=== PATIENT | male | born 1935 | race Caucasian/White ===

== ENCOUNTER 2021-06-18 09:54 | Inpatient (IN) | payer MEDICARE, BC ==
[2021-06-18] MEDS ORDERED: Albuterol/Ipratropium 3.0-0.5 MG/3 ML Neb Soln NEB ONE (10:14)
--- NOTE | 2021-06-18 10:57 | EDM.PDOC ---
ED HPI GENERAL MEDICAL PROBLEM - General Chief Complaint: Respiratory Problem Stated Complaint: oxygen level Time Seen by Provider: 06/18/21 09:58 Source of Information: Reports: Patient, Significant Other History Limitations: Reports: No Limitations - History of Present Illness INITIAL COMMENTS - FREE TEXT/NARRATIVE: Patient presents with dyspnea. He was at the [facility] for a routine appointment with his oncologist. His O2 sats were in the 50's so they sent him to ER. He uses 3-3.5 liters of oxygen at home but lower on his portable in the car. He was without oxygen walking in to the clinic. He has known COPD, emphysema, and small cell lung cancer. He is doing chemotherapy. He always has a cough and doesn't think it is much worse than usual but has a loose, rattly sound with breathing that has been worse the last few days. He does Duonebs at home bid but didn't have one this morning yet. Treatments SLIPMAN: Reports: IV/IO, Oxygen - Related Data Allergies Allergy/AdvReac Type Severity Reaction Status Date / Time oxycodone [Oxycodone] Allergy Hives Verified 06/18/21 10:11 tramadol Allergy Cannot Verified 06/18/21 10:11 Remember Home Meds: Home Meds Acetaminophen [Acetaminophen 8 Hour] 650 mg PO BID PRN 10/25/20 [History] Albuterol [Proventil Neb Soln] 2.5 mg INH Q4H PRN 10/25/20 [History] Albuterol/Ipratropium [DuoNeb 3.0-0.5 MG/3 ML] 1 ampule INH Q6H PRN 10/25/20 [History] Aspirin 81 mg PO BEDTIME 10/25/20 [History] Budesonide [Pulmicort] 0.5 mg IH BID PRN 10/25/20 [History] Cholecalciferol (Vitamin D3) [Vitamin D3] 2,000 units PO DAILY 10/25/20 [History] Docusate Sodium [Colace] 200 mg PO BEDTIME 10/25/20 [History] Formoterol [Perforomist] 20 mcg INH BID 10/25/20 [History] Magnesium Chloride [Magnesium] 64 mg PO BEDTIME 10/25/20 [History] Montelukast [Singulair] 10 mg PO BEDTIME 10/25/20 [History] atorvaSTATin [Lipitor] 20 mg PO QAM 10/25/20 [History] lisinopriL [Prinivil] 2.5 mg PO QPM 10/25/20 [History] predniSONE [Prednisone] 5 mg PO DAILY 10/25/20 [History] Apixaban [Eliquis] 5 mg PO BID 01/16/21 [History] Atezolizumab [Tecentriq] 1,200 mg IV ASDIRECTED 02/06/21 [History] Omeprazole 20 mg PO DAILY 06/18/21 [History] Past Medical History HEENT History: Reports: Impaired Vision Cardiovascular History: Reports: CAD, Heart Failure, [place] Respiratory History: Reports: COPD, Pneumothorax, SOB Genitourinary History: Reports: Renal Calculus Musculoskeletal History: Reports: Other (See Below) Other Musculoskeletal History: CHRONIC RIGHT HIP PAIN Endocrine/Metabolic History: Reports: Osteoporosis Hematologic History: Reports: Anemia Oncologic (Cancer) History: 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 SQUAMOUS RIGHT EAR - Past Surgical History HEENT Surgical History: Reports: None Cardiovascular Surgical History: Reports: Other (See Below) Other Cardiovascular Surgeries/Procedures: CARDIAC CATHETERIZATION FAILED ATTEMPT AT RCA Other Respiratory Surgeries/Procedures: right upper [id number] GI Surgical History: Reports: Colonoscopy Male Surgical History: Reports: Other (See Below) Other Male Surgeries/Procedures: BREAST BIOPSY LEFT - BENIGN. BIOPSY VOCAL CORDS - CYST REMOVED Musculoskeletal Surgical History: Reports: Other (See Below) Other Musculoskeletal Surgeries/Procedures:: T7 COMPRESSION FRACTURE Social & Family History - Caffeine Use Caffeine Use: Reports: Coffee ED ROS GENERAL - Review of Systems Review Of Systems: See Below Constitutional: Denies: Fever, Weakness HEENT: Denies: Ear Pain, Throat Pain, Vision Change Respiratory: Reports: Shortness of Breath Cardiovascular: Denies: Chest Pain, Lightheadedness, Syncope GI/Abdominal: Reports: Constipation (chronic). Denies: Abdominal Pain, Diarrhea, Nausea, Vomiting : Denies: Dysuria Musculoskeletal: Denies: Neck Pain Skin: Reports: Cyanosis (he was at clinic today). Denies: Jaundice, Mottled, Pallor Neurological: Denies: Confusion, Dizziness, Headache, Seizure, Syncope, Trouble Speaking, Difficulty Walking Psychiatric: Denies: Agitation, Anxiety, Confusion Hematologic/Lymphatic: Denies: Anemia (his chemo hasn't caused any anemias so far) ED EXAM, GENERAL - Physical Exam Exam: See Below Exam Limited By: No Limitations General Appearance: Alert, No Apparent Distress (currently on oxygen he is not ), Thin Eye Exam: Bilateral Eye: EOMI, Normal Inspection, PERRL Ears: Normal External Exam, Hearing Grossly Normal Nose: Normal Inspection, No Blood Throat/Mouth: Normal Inspection, Normal Lips, Normal Voice, No Airway Compromise Head: Atraumatic, Normocephalic Neck: Normal Inspection, Full Range of Motion Respiratory/Chest: Crackles (mild crackles in both lungs but largely overshadowe d by the coarse rhonchi in the upper airway), Rhonchi, Wheezing (mild, transient). No: Stridor Cardiovascular: Regular Rate, Rhythm, No Murmur GI/Abdominal: Normal Bowel Sounds, Soft, Non-Tender, No Distention Back Exam: Normal Inspection, Full Range of Motion. No: CVA Tenderness (L), CVA Tenderness (R) Extremities: Normal Inspection, Normal Range of Motion Neurological: Alert, Oriented, Normal Cognition, No Motor/Sensory Deficits Psychiatric: Normal Affect, Normal Mood Skin Exam: Warm, Dry, Intact, Normal Color (currently), No Rash Course - Vital Signs Last Recorded V/S: Last Vital Signs Temp 97.1 F 06/18/21 09:54 Pulse 94 06/18/21 10:48 Resp 22 H 06/18/21 10:00 BP 130/77 06/18/21 10:00 Pulse Ox 95 06/18/21 10:48 - Orders/Labs/Meds Orders: Active Orders 24 hr Category Date Time Status RT Aerosol Therapy [RC] ASDIRECTED Care 06/18/21 10:16 Ordered CULTURE BLOOD [BC] Stat Lab 06/18/21 11:57 Ordered CULTURE BLOOD [BC] Stat Lab 06/18/21 11:57 Ordered Blood Culture x2 Reflex Set [OM.PC] Stat Oth 06/18/21 11:57 Ordered Labs: Laboratory Tests 06/18/21 06/18/21 06/18/21 Range/Units 10:14 10:40 10:40 WBC 13.29 H (5.00-10.00) 10^3/uL RBC 3.92 L (4.50-6.00) 10^6/uL Hgb 12.0 L (13.0-17.0) g/dL Hct 36.0 L (40.0-52.0) % MCV 91.8 (82.0-92.0) fL MCH 30.6 (27.0-31.0) pg MCHC 33.3 (32.0-36.0) g/dL RDW 14.0 (11.5-14.5) % Plt Count 186 (150-400) 10^3/uL MPV 9.6 (7.4-10.4) fL Immature Gran % (Auto) 3.7 (0.0-5.0) % Neut % (Auto) 86.5 H (50.0-70.0) % Lymph % (Auto) 2.8 L (20.0-40.0) % [place] % (Auto) 6.8 (2.0-8.0) % Eos % (Auto) 0.1 L (1.0-3.0) % Baso % (Auto) 0.1 (0.0-1.0) % Neut # (Auto) 11.51 H (2.50-7.00) 10^3/uL Lymph # (Auto) 0.37 L (1.00-4.00) 10^3/uL [place] # (Auto) 0.90 H (0.10-0.80) 10^3/uL Eos # (Auto) 0.01 L (0.10-0.30) 10^3/uL Baso # (Auto) 0.01 (0.00-0.10) 10^3/uL Immature Gran # (Auto) 0.49 (0.00-0.50) 10^3/uL Sodium 138 (136-145) mmol/L Potassium 4.1 (3.5-5.1) mmol/L Chloride 98 (98-107) mmol/L Carbon Dioxide 31.9 (21.0-32.0) mmol/L Anion Gap 12.2 (5-15) mmol/L BUN 43 H (7-18) mg/dL Creatinine 0.96 (0.51-1.17) mg/dL Est Cr Clr Drug Dosing 56.11 mL/min Estimated GFR (MDRD) > 60 mL/min Glucose 124 (70-140) mg/dL Lactic Acid 1.9 (0.4-2.0) mmol/L Calcium 9.2 (8.7-10.3) mg/dL Total Bilirubin 0.5 (0.2-1.0) mg/dL AST 72 H (15-37) U/L ALT 29 (14-63) U/L Alkaline Phosphatase 63 (46-116) U/L B-Natriuretic Peptide 291 H (0-100) pg/mL Total Protein 6.6 (6.4-8.2) g/dL Albumin 3.01 L (3.40-5.00) g/dL SARS CoV-2 RNA Rapid KISHAN (NEGATIVE) 06/18/21 Range/Units 12:10 WBC (5.00-10.00) 10^3/uL RBC (4.50-6.00) 10^6/uL Hgb (13.0-17.0) g/dL Hct (40.0-52.0) % MCV (82.0-92.0) fL MCH (27.0-31.0) pg MCHC (32.0-36.0) g/dL RDW (11.5-14.5) % Plt Count (150-400) 10^3/uL MPV (7.4-10.4) fL Immature Gran % (Auto) (0.0-5.0) % Neut % (Auto) (50.0-70.0) % Lymph % (Auto) (20.0-40.0) % [place] % (Auto) (2.0-8.0) % Eos % (Auto) (1.0-3.0) % Baso % (Auto) (0.0-1.0) % Neut # (Auto) (2.50-7.00) 10^3/uL Lymph # (Auto) (1.00-4.00) 10^3/uL [place] # (Auto) (0.10-0.80) 10^3/uL Eos # (Auto) (0.10-0.30) 10^3/uL Baso # (Auto) (0.00-0.10) 10^3/uL Immature Gran # (Auto) (0.00-0.50) 10^3/uL Sodium (136-145) mmol/L Potassium (3.5-5.1) mmol/L Chloride (98-107) mmol/L Carbon Dioxide (21.0-32.0) mmol/L Anion Gap (5-15) mmol/L BUN (7-18) mg/dL Creatinine (0.51-1.17) mg/dL Est Cr Clr Drug Dosing mL/min Estimated GFR (MDRD) mL/min Glucose (70-140) mg/dL Lactic Acid (0.4-2.0) mmol/L Calcium (8.7-10.3) mg/dL Total Bilirubin (0.2-1.0) mg/dL AST (15-37) U/L ALT (14-63) U/L Alkaline Phosphatase (46-116) U/L B-Natriuretic Peptide (0-100) pg/mL Total Protein (6.4-8.2) g/dL Albumin (3.40-5.00) g/dL SARS CoV-2 RNA Rapid KISHAN Negative (NEGATIVE) Meds: Medications Discontinued Medications Generic Name Dose Route Start Last Admin Trade Name Freq PRN Reason Stop Dose Admin Albuterol/Ipratropium 3 ml 06/18/21 10:14 06/18/21 10:48 Albuterol/Ipratropium 3.0-0.5 Mg/3 Ml Neb Soln NEB 06/18/21 10:15 3 ml ONETIME ONE Administration Ceftriaxone Sodium 2 gm 06/18/21 12:11 06/18/21 12:43 Ceftriaxone 2 Gm Vial IVPUSH 06/18/21 12:12 2 gm ONETIME ONE Administration - Re-Assessments/Exams Free Text/Narrative Re-Assessment/Exam: 06/18/21 12:12 WBC and ANC elevated. CXR consistent with pneumonia. Getting blood cultures and Covid tests now. Rocephin to follow. I called and left voicemail for Dr. Lobo about this admission. I discussed findings and treatment plan with patient and he is okay with staying in the hospital. 06/18/21 12:[address] Lobo and he accepted for inpatient treatment. Patient stable. Covid test negative. Blood cultures drawn and Rocephin being started now. Departure - Departure Time of Disposition: 12:55 Disposition: Admitted As Inpatient 68 Condition: Good Clinical Impression: Hypoxemia requiring supplemental oxygen, Small cell lung carcinoma CAP (community acquired pneumonia) Qualifiers: Laterality: left Lung location: unspecified part of lung Qualified Code(s): J18.9 - Pneumonia, unspecified organism COPD (chronic obstructive pulmonary disease) Qualifiers: COPD type: unspecified COPD Qualified Code(s): J44.9 - Chronic obstructive pulmonary disease, unspecified Emphysema lung Qualifiers: Emphysema type: unspecified Qualified Code(s): J43.9 - Emphysema, unspecified - Discharge Information Referrals: Mana Cruz MD [Primary Care Provider] - Forms: ED Department Discharge Sepsis Event Note (ED) - Evaluation Sepsis Screening Result: No Definite Risk - Focused Exam Vital Signs: Vital Signs Temp Pulse Resp BP Pulse Ox Pulse Ox 06/18/21 10:48 94 95 06/18/21 10:00 102 H 22 H 130/77 95 06/18/21 09:54 97.1 F 100 20 132/74 99 - My Orders Last 24 Hours: My Active Orders 06/18/21 10:16 RT Aerosol Therapy [RC] ASDIRECTED 06/18/21 11:57 CULTURE BLOOD [BC] Stat CULTURE BLOOD [BC] Stat Blood Culture x2 Reflex Set [OM.PC] Stat - Assessment/Plan Last 24 Hours: My Active Orders 06/18/21 10:16 RT Aerosol Therapy [RC] ASDIRECTED 06/18/21 11:57 CULTURE BLOOD [BC] Stat CULTURE BLOOD [BC] Stat Blood Culture x2 Reflex Set [OM.PC] Stat
[2021-06-18 11:04] LABS: ANION GAP 12.2 mmol/L (5-15); CHLORIDE,CL 98 mmol/L (98-107); SODIUM,NA 138 mmol/L (136-145)
--- NOTE | 2021-06-18 11:26 | CR ---
[id number] RAD/RAD Chest PA or AP 1V EXAM: RAD Chest PA or AP 1V INDICATION: HYPOXEMIA,COUGH. COMPARISON: August 2016. DISCUSSION/IMPRESSION: Parenchymal opacification extending peripherally from the left hilum. Imaging appearance is nonspecific. If there are clinical signs of infection this would be consistent with pneumonia. However, there is also increased right hilar prominence is prior examination 2015. CT examination the chest with contrast is recommended to exclude underlying adenopathy. If there is contraindication to intravenous contrast, noncontrast examination would also be of benefit. Martin Chin MD 06/18/21 1125 Thank you for allowing us to participate in the care of your patient.
[2021-06-18] MEDS ORDERED: cefTRIAXone 2 GM Vial IVPUSH ONE (12:11)
[2021-06-18] MEDS ORDERED: Acetaminophen 650 MG Tab.ER PO PRN (15:51)
[2021-06-18] MEDS ORDERED: ATEZOLIZUMAB IV SCH (16:00)
[2021-06-18] MEDS: Albuterol/Ipratropium 3.0-0.5 MG/3 ML Neb Soln INH PRN (18:08)
[2021-06-18] MEDS ORDERED: Sodium Chloride 0.9% 100 ML IV SCH (18:15)
[2021-06-18] MEDS: Levofloxacin/Dextrose 5%-Water 500 MG in Premix Bag 1 BAG IV SCH (18:25)
--- NOTE | 2021-06-18 20:38 | HP ---
PATIENT PROFILE: The patient is an 85-year-old patient. He was initially seen because of dyspnea. He was seen earlier at the [facility] for a routine appointment with his oncologist, Dr. Jorgensen. His oxygen saturations were in the 50s, so they sent him to the emergency room. He uses 3 to 3.5 L of oxygen at home, but lower on his portable when he is in the car. He was without oxygen walking into the clinic. He has known COPD, emphysema, and small cell lung carcinoma. He is doing chemotherapy at this time. He also always has a slight cough. It was not much worse than normal. He has a loose rattly sound with breathing and that was worse from the last couple of days. He does DuoNeb at home, but did not have one this morning. 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 CARDIOVASCULAR HISTORY: Includes reports of coronary artery disease, heart failure, previous ME. RESPIRATORY SYSTEM: Includes COPD. Pneumothorax. He has shortness of breath. GENITOURINARY SYSTEM: Reports renal calculi. MUSCULOSKELETAL SYSTEM: Nil, otherwise he has chronic right hip pain. ENDOCRINE HISTORY: History of osteoporosis. HEMATOLOGIC HISTORY: History of anemia. ONCOLOGICAL HISTORY: The patient does have small cell carcinoma of the left lung. 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 PAST SURGICAL HISTORY: Includes biopsy of the vocal cord, excision of cyst of the skin, thoracotomy, endobronchial ultrasound, breast biopsy, hernia repair, colonoscopy, and cardiac catheterization. MEDICATIONS: Currently include acetaminophen 650 mg b.i.d. on a p.r.n. basis, albuterol nebulizer treatments on a p.r.n. basis q.4h., albuterol ipratropium nebulizer 3.0/0.5 mg per 3 mL 1 ampule q.6h. p.r.n., aspirin 81 mg at bedtime, budesonide (Pulmicort) 0.5 mg INH b.i.d. p.r.n., cholecalciferol, vitamin D3 at 2000 units daily, docusate sodium one 200 mg at bedtime, formoterol which is Perforomist 20 mcg inhalation b.i.d., magnesium chloride 6.4 mg at bedtime, montelukast 10 mg at bedtime, atorvastatin 20 mg daily, lisinopril 2.5 mg daily in the p.m., prednisone 5 mg daily, Eliquis 5 mg b.i.d., Tecentriq 1200 mg IV as directed, omeprazole 20 mg daily. ALLERGIES: Oxycodone and tramadol. SOCIAL/PERSONAL HISTORY: The patient has used tobacco. Drugs, no. Alcohol, no. FAMILY HISTORY: One brother is alive. Father is diseased. Mother is diseased. One sister and one of the two brothers are alive. REVIEW OF SYSTEMS: HEAD AND NECK: He complains of fever, weakness, and respiratory distress. HEENT: Negative. RESPIRATORY: Complains of coughing, shortness of breath and wheezing. CARDIOVASCULAR: Denies any chest pain, lightheadedness, or syncope. ABDOMEN: Complains of constipation. Denies any active abdominal pain, diarrhea, nausea, vomiting at this time. : Denies dysuria. MUSCULOSKELETAL: Denies neck pain. SKIN: Reports cyanosis. NEUROLOGICAL: No history of confusion, dizziness, headaches, seizures, trouble speaking, difficulty walking, etc. PSYCHIATRIC: Denies agitation or confusion. HEMATOLOGICAL: Has history of anemia. PHYSICAL EXAMINATION: GENERAL: Reveals an elderly gentleman in a moderate amount of distress. EYES: Arcus senilis. EARS, NOSE, AND THROAT: Normal. NECK: Supple. Full range of motion. No midline swellings. The lymph nodes are not enlarged. RESPIRATORY: The patient has crackles present throughout the lung cummings, especially in the left side. He has a loose cough present. Also some rhonchi present. No stridor. CARDIOVASCULAR: Regular rhythm. No thrills. No murmurs. ABDOMEN: Normal bowel sounds. Soft, nontender. No masses. BACK: No CVA tenderness. Full range of motion. EXTREMITIES: Normal range of motion. NEUROLOGICAL: Alert and oriented to space, time, and person. PSYCHIATRIC: Normal mood and normal affect. SKIN: Normal. No rash. VITAL SIGNS: Temperature is 97.1, pulse is 94, respirations 22, blood pressure 130/77, pulse oxygenation 95%. DIAGNOSTIC: Chest x-ray shows infiltrate of the left hilar consistent with pneumonia. The patient has elevated WBC and ANC. Rocephin was given. The patient was admitted to the hospital for admission. Blood cultures are drawn. Levofloxacin 500 mg also started. LABORATORY DATA: Hemoglobin is 12.0, white count 13.29, hematocrit is 36, neutrophils are 86.5%, lymphocytes 2.8%, normal 20. Electrolytes are normal. Lactic acid 1.9, normal up to 2. AST slightly high at 72, normal 37. Beta natriuretic peptide is 291, normal 100. Albumin low at 3.01, normal 3.4. IMPRESSION/PLAN: 1. Left upper lobe pneumonia. 2. History of small cell carcinoma of the lungs. 3. Coronary artery disease, stable. 4. Tobacco dependency, stable. 5. Chronic systolic congestive heart failure, stable. 6. Previous history of myocardial infarction and coronary artery disease. 7. History of emphysema of lungs. 8. History of renal calculi. 9. History of hypermagnesemia. 10.Previous history of compression fracture of T7. 11.Osteoporosis. 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 13.Status post right inguinal herniorrhaphy, status post cardiac catheterization, status post thoracotomy, status post cephalic vein thrombosis requiring anticoagulation therapy. 14.Constipation. The plan will be to start him on Rocephin and levofloxacin for his pneumonia. Continue pulmonary treatments with albuterol and ipratropium, continue apixaban for his cephalic vein thrombosis, continue atorvastatin, budesonide, hydrocodone for pain relief. Follow up in a.m. PROGNOSIS: Grave. /[id number]/MODL
[2021-06-18] MEDS: Aspirin 81 MG Tab.Chew PO SCH (20:44)
[2021-06-18] MEDS: Apixaban 5 MG Tab PO SCH (20:44)
[2021-06-18] MEDS: Magnesium Chloride 64 MG Tab.ER PO SCH (20:44)
[2021-06-18] MEDS: Docusate Sodium 100 MG Cap PO SCH (20:44)
[2021-06-18] MEDS: Montelukast 10 MG Tab PO SCH (20:44)
[2021-06-18] MEDS: Lisinopril 5 MG Tab PO SCH (20:53)
[2021-06-18] MEDS: Albuterol 0.083% 2.5 MG/3 ML Neb Soln INH PRN (22:15)
[2021-06-19] MEDS: Albuterol/Ipratropium 3.0-0.5 MG/3 ML Neb Soln INH PRN ×3 (01:35→18:35)
[2021-06-19] MEDS ORDERED: Hydrocortisone Sodium Succinate 100 MG/2 ML SDV IVPUSH ONE (02:19)
[2021-06-19] MEDS ORDERED: Magnesium Sulfate/Water 2 GM in Premix Bag 1 BAG IV ONE (02:20)
[2021-06-19] MEDS: guaiFENesin 600 MG Tab.ER PO SCH ×3 (03:29→20:09)
[2021-06-19 04:33] LABS: BASE EXCESS ARTERIAL 4 mmol/L (-2-3); BICARBONATE,ARTERIAL 30.6 mmol/L (22-26); O2 DELIVERY DEVICE SIMPLE MASK; O2 SATURATION ARTERIAL 94 % (95-98); PCO2 ARTERIAL 53 mmHG (35-45); PO2 ARTERIAL 73 mmHG (80-105)
--- NOTE | 2021-06-19 04:37 | CCN ---
DATE: TIME: 3:30 a.m. HISTORY OF PRESENT ILLNESS: The patient is an 85-year-old gentleman, who was admitted to the hospital yesterday because of acute respiratory distress. The past history of this patient includes the fact that he has lung carcinoma and is undergoing treatment with chemotherapy. He also has a loose cough and slight respiratory distress at baseline. He was seen in the clinic yesterday morning and he was found to be somewhat cyanotic and having rapid breathing. Because of that, he was sent to the emergency room. He was seen in the emergency room and found to be in [id number] respiratory distress and was admitted to the hospital for further treatment. The patient always has a slight cough and slight dyspnea. At the time of his admission, his dyspnea was worse. I received a call from the nurse stating that his breathing was getting quite rapid. He had received an albuterol/ipratropium treatment, but that was not helping. His respiratory rate was getting up into the 20s. I came to see the patient at roughly 3:10 a.m. The patient seemed to be in moderate respiratory distress. He had a loose cough present. Also, some audible wheezing was noted. PHYSICAL EXAMINATION: VITAL SIGNS: As follows: Blood pressure was 125/67, respirations were actually 30, pulse was 86, pulse oxygenation was 95% on 5 L. GENERAL: He is alert. He answers questions appropriately. He states that he always has a loose cough. Does not feel too bad at this time. HEAD: Negative. EYES: Normal except for arcus senilis. NECK: Supple. LUNGS: Reveal some audible wheezing and fine crackles present throughout the lung cummings. HEART: Tachycardic rhythm. No thrills. No murmurs. ABDOMEN: Soft. No masses. EXTREMITIES: Normal. FINAL DIAGNOSES: 1. Acute on chronic respiratory distress most likely due to superadded pulmonary infection, question pneumonia, bilateral of both lungs. 2. Pre-existing lung carcinoma, on treatment. 3. History of coronary artery disease, stable. 4. History of tobacco dependency, stable. 5. History of congestive heart failure, stable. 6. Previous history of myocardial infarction, stable. 7. History of chronic obstructive pulmonary disease, stable. PLAN: To give him an additional ipratropium/albuterol treatment, IV Solu-Cortef 100 mg stat and glycopyrrolate as necessary and IV magnesium very slowly. I also made attempts to call his daughter and his , but no phones were answered. His prognosis is grave. We will also relate to Dr. Jorgensen, his primary oncologist, regarding his progress later this morning. CRITICAL CARE TIME: /[id number]/MODL
[2021-06-19] MEDS: Albuterol 0.083% 2.5 MG/3 ML Neb Soln INH PRN ×3 (05:51→23:47)
[2021-06-19 07:59] LABS: ANION GAP 12.9 mmol/L (5-15); CHLORIDE,CL 97 mmol/L (98-107); SODIUM,NA 137 mmol/L (136-145)
[2021-06-19] MEDS: Budesonide 0.5 MG/2 ML Neb Susp INH SCH ×2 (08:57→20:15)
[2021-06-19] MEDS: predniSONE 5 MG Tab PO SCH (09:14)
[2021-06-19] MEDS: Omeprazole 20 MG Cap.CR PO SCH (09:14)
[2021-06-19] MEDS: Apixaban 5 MG Tab PO SCH ×2 (09:14→20:12)
[2021-06-19] MEDS: Cholecalciferol (Vitamin D3) 25 MCG Tab PO SCH (09:15)
[2021-06-19] MEDS: atorvaSTATin 10 MG Tab PO SCH (09:15)
[2021-06-19] MEDS: Sodium Chloride 0.9% 1,000 ML IV SCH (10:38)
[2021-06-19] MEDS: Hydrocortisone Sodium Succinate 100 MG/2 ML SDV IVPUSH SCH ×2 (11:22→18:38)
--- NOTE | 2021-06-19 11:23 | PCM.PN ---
- General Info Date of Service: 06/19/21 Functional Status: Reports: Pain Controlled, Urinating - Review of Systems General: Reports: Weakness HEENT: Reports: No Symptoms Pulmonary: Reports: Shortness of Breath, Cough, Sputum. Denies: Hemoptysis Cardiovascular: Reports: Dyspnea on Exertion. Denies: Chest Pain, Palpitations, Edema Gastrointestinal: Reports: No Symptoms Genitourinary: Reports: No Symptoms Musculoskeletal: Reports: No Symptoms Skin: Reports: No Symptoms Neurological: Reports: No Symptoms Psychiatric: Reports: No Symptoms - Patient Data Vitals - Most Recent: Last Vital Signs Temp 97.6 F 06/19/21 06:16 Pulse 99 06/19/21 06:16 Resp 24 H 06/19/21 06:16 BP 145/62 H 06/19/21 06:16 Pulse Ox 90 L 06/19/21 11:12 Weight - Most Recent: 141 lb 14.4 oz I&O - Last 24 Hours: Intake & Output 06/18/21 06/19/21 06/19/21 22:59 06:59 14:59 Intake Total 370 525 Output Total 350 Balance 370 175 Lab Results Last 24 Hours: Laboratory Results - last 24 hr 06/18/21 06/18/21 06/19/21 Range/Units 10:40 12:10 04:10 WBC (5.00-10.00) 10^3/uL RBC (4.50-6.00) 10^6/uL Hgb (13.0-17.0) g/dL Hct (40.0-52.0) % MCV (82.0-92.0) fL MCH (27.0-31.0) pg MCHC (32.0-36.0) g/dL RDW (11.5-14.5) % Plt Count (150-400) 10^3/uL MPV (7.4-10.4) fL Immature Gran % (Auto) (0.0-5.0) % Neut % (Auto) (50.0-70.0) % Lymph % (Auto) (20.0-40.0) % Gr[place]gs % (Auto) (2.0-8.0) % Eos % (Auto) (1.0-3.0) % Baso % (Auto) (0.0-1.0) % Neut # (Auto) (2.50-7.00) 10^3/uL Lymph # (Auto) (1.00-4.00) 10^3/uL Griggs # (Auto) (0.10-0.80) 10^3/uL Eos # (Auto) (0.10-0.30) 10^3/uL Baso # (Auto) (0.00-0.10) 10^3/uL Immature Gran # (Auto) (0.00-0.50) 10^3/uL ABG pH 7.37 (7.35-7.45) ABG pCO2 53 H (35-45) mmHG ABG pO2 73 L (80-105) mmHG ABG HCO3 30.6 H (22-26) mmol/L ABG Total CO2 31 H (23-27) mmol/L ABG O2 Saturation 94 L (95-98) % ABG Base Excess 4 H (-2-3) mmol/L O2 Delivery Device Simple mask Sodium (136-145) mmol/L Potassium (3.5-5.1) mmol/L Chloride (98-107) mmol/L Carbon Dioxide (21.0-32.0) mmol/L Anion Gap (5-15) mmol/L BUN (7-18) mg/dL Creatinine (0.51-1.17) mg/dL Est Cr Clr Drug Dosing mL/min Estimated GFR (MDRD) mL/min Glucose (70-140) mg/dL Lactic Acid (0.4-2.0) mmol/L Calcium (8.7-10.3) mg/dL Magnesium (1.8-2.4) mg/dL Total Bilirubin (0.2-1.0) mg/dL AST (15-37) U/L ALT (14-63) U/L Alkaline Phosphatase (46-116) U/L C-Reactive Protein (0.0-0.9) mg/dL B-Natriuretic Peptide 291 H (0-100) pg/mL Total Protein (6.4-8.2) g/dL Albumin (3.40-5.00) g/dL SARS CoV-2 RNA Rapid KISHAN Negative (NEGATIVE) 06/19/21 06/19/21 06/19/21 Range/Units 07:30 07:30 07:35 WBC 13.58 H (5.00-10.00) 10^3/uL RBC 3.90 L (4.50-6.00) 10^6/uL Hgb 12.0 L (13.0-17.0) g/dL Hct 36.3 L (40.0-52.0) % MCV 93.1 H (82.0-92.0) fL MCH 30.8 (27.0-31.0) pg MCHC 33.1 (32.0-36.0) g/dL RDW 14.0 (11.5-14.5) % Plt Count 192 (150-400) 10^3/uL MPV 9.8 (7.4-10.4) fL Immature Gran % (Auto) 4.3 (0.0-5.0) % Neut % (Auto) 88.4 H (50.0-70.0) % Lymph % (Auto) 2.7 L (20.0-40.0) % Griggs % (Auto) 4.5 (2.0-8.0) % Eos % (Auto) 0.0 L (1.0-3.0) % Baso % (Auto) 0.1 (0.0-1.0) % Neut # (Auto) 12.02 H (2.50-7.00) 10^3/uL Lymph # (Auto) 0.36 L (1.00-4.00) 10^3/uL Griggs # (Auto) 0.61 (0.10-0.80) 10^3/uL Eos # (Auto) 0.00 L (0.10-0.30) 10^3/uL Baso # (Auto) 0.01 (0.00-0.10) 10^3/uL Immature Gran # (Auto) 0.58 H (0.00-0.50) 10^3/uL ABG pH (7.35-7.45) ABG pCO2 (35-45) mmHG ABG pO2 (80-105) mmHG ABG HCO3 (22-26) mmol/L ABG Total CO2 (23-27) mmol/L ABG O2 Saturation (95-98) % ABG Base Excess (-2-3) mmol/L O2 Delivery Device Sodium (136-145) mmol/L Potassium (3.5-5.1) mmol/L Chloride (98-107) mmol/L Carbon Dioxide (21.0-32.0) mmol/L Anion Gap (5-15) mmol/L BUN (7-18) mg/dL Creatinine (0.51-1.17) mg/dL Est Cr Clr Drug Dosing mL/min Estimated GFR (MDRD) mL/min Glucose (70-140) mg/dL Lactic Acid 3.4 H (0.4-2.0) mmol/L Calcium (8.7-10.3) mg/dL Magnesium 2.0 (1.8-2.4) mg/dL Total Bilirubin (0.2-1.0) mg/dL AST (15-37) U/L ALT (14-63) U/L Alkaline Phosphatase (46-116) U/L C-Reactive Protein 5.0 H (0.0-0.9) mg/dL B-Natriuretic Peptide (0-100) pg/mL Total Protein (6.4-8.2) g/dL Albumin (3.40-5.00) g/dL SARS CoV-2 RNA Rapid KISHAN (NEGATIVE) 06/19/21 Range/Units 07:35 WBC (5.00-10.00) 10^3/uL RBC (4.50-6.00) 10^6/uL Hgb (13.0-17.0) g/dL Hct (40.0-52.0) % MCV (82.0-92.0) fL MCH (27.0-31.0) pg MCHC (32.0-36.0) g/dL RDW (11.5-14.5) % Plt Count (150-400) 10^3/uL MPV (7.4-10.4) fL Immature Gran % (Auto) (0.0-5.0) % Neut % (Auto) (50.0-70.0) % Lymph % (Auto) (20.0-40.0) % Griggs % (Auto) (2.0-8.0) % Eos % (Auto) (1.0-3.0) % Baso % (Auto) (0.0-1.0) % Neut # (Auto) (2.50-7.00) 10^3/uL Lymph # (Auto) (1.00-4.00) 10^3/uL Griggs # (Auto) (0.10-0.80) 10^3/uL Eos # (Auto) (0.10-0.30) 10^3/uL Baso # (Auto) (0.00-0.10) 10^3/uL Immature Gran # (Auto) (0.00-0.50) 10^3/uL ABG pH (7.35-7.45) ABG pCO2 (35-45) mmHG ABG pO2 (80-105) mmHG ABG HCO3 (22-26) mmol/L ABG Total CO2 (23-27) mmol/L ABG O2 Saturation (95-98) % ABG Base Excess (-2-3) mmol/L O2 Delivery Device Sodium 137 (136-145) mmol/L Potassium 4.7 (3.5-5.1) mmol/L Chloride 97 L (98-107) mmol/L Carbon Dioxide 31.8 (21.0-32.0) mmol/L Anion Gap 12.9 (5-15) mmol/L BUN 35 H (7-18) mg/dL Creatinine 0.82 (0.51-1.17) mg/dL Est Cr Clr Drug Dosing 62.14 mL/min Estimated GFR (MDRD) > 60 mL/min Glucose 138 (70-140) mg/dL Lactic Acid (0.4-2.0) mmol/L Calcium 8.9 (8.7-10.3) mg/dL Magnesium (1.8-2.4) mg/dL Total Bilirubin 0.5 (0.2-1.0) mg/dL AST 78 H (15-37) U/L ALT 27 (14-63) U/L Alkaline Phosphatase 64 (46-116) U/L C-Reactive Protein (0.0-0.9) mg/dL B-Natriuretic Peptide (0-100) pg/mL Total Protein 6.7 (6.4-8.2) g/dL Albumin 2.92 L (3.40-5.00) g/dL SARS CoV-2 RNA Rapid KISHAN (NEGATIVE) Med Orders - Current: Current Medications Acetaminophen (Acetaminophen 650 Mg Tab.Er) 650 mg PO BID PRN PRN Reason: Pain Albuterol (Albuterol 0.083% 2.5 Mg/3 Ml Neb Soln) 2.5 mg INH Q4H PRN PRN Reason: Dyspnea Last Admin: 06/19/21 05:51 Dose: 2.5 mg Documented by: Albuterol/Ipratropium (Albuterol/Ipratropium 3.0-0.5 Mg/3 Ml Neb Soln) 3 ml INH Q6H PRN PRN Reason: Shortness of Breath Last Admin: 06/19/21 11:15 Dose: 3 ml Documented by: Apixaban (Apixaban 5 Mg Tab) 5 mg PO BID [facility] Last Admin: 06/19/21 09:14 Dose: 5 mg Documented by: Aspirin (Aspirin 81 Mg Tab.Chew) 81 mg PO BEDTIME [facility] Last Admin: 06/18/21 20:44 Dose: 81 mg Documented by: Atorvastatin Calcium (Atorvastatin 10 Mg Tab) 20 mg PO QAM [facility] Last Admin: 06/19/21 09:15 Dose: 20 mg Documented by: Budesonide (Budesonide 0.5 Mg/2 Ml Neb Susp) 0.5 mg INH BIDRT [facility] Last Admin: 06/19/21 08:57 Dose: 0.5 mg Documented by: Ceftriaxone Sodium (Ceftriaxone 1 Gm Vial) 1 gm IVPUSH Q24H [facility] Cholecalciferol (Cholecalciferol (Vitamin D3) 25 Mcg Tab) 50 mcg PO DAILY [facility] Last Admin: 06/19/21 09:15 Dose: 50 mcg Documented by: Docusate Sodium (Docusate Sodium 100 Mg Cap) 200 mg PO BEDTIME [facility] Last Admin: 06/18/21 20:44 Dose: 200 mg Documented by: Formoterol Fumarate (Formoterol 20 Mcg/2 Ml Neb) 20 mcg INH BID [facility] Last Admin: 06/19/21 10:43 Dose: Not Given Documented by: Guaifenesin (Guaifenesin 600 Mg Tab.Er) 600 mg PO BID [facility] Last Admin: 06/19/21 09:14 Dose: 600 mg Documented by: Hydrocortisone Sodium Succinate (Hydrocortisone Sodium Succinate 100 Mg/2 Ml Sdv) 100 mg IVPUSH Q8H [facility] Levofloxacin/Dextrose 500 mg/ (Premix) 100 mls @ 100 mls/hr IV Q24H [facility] Last Admin: 06/18/21 18:25 Dose: 100 mls/hr Documented by: Sodium Chloride (Normal Saline) 100 mls @ 50 mls/hr IV ASDIRECTED [facility] Last Admin: 06/18/21 18:28 Dose: 50 mls/hr Documented by: Sodium Chloride (Normal Saline) 1,000 mls @ 75 mls/hr IV ASDIRECTED [facility] Last Admin: 06/19/21 10:38 Dose: 75 mls/hr Documented by: Lisinopril (Lisinopril 5 Mg Tab) 2.5 mg PO QPM [facility] Last Admin: 06/18/21 20:53 Dose: 2.5 mg Documented by: Magnesium Chloride (Magnesium Chloride 64 Mg Tab.Er) 64 mg PO BEDTIME [facility] Last Admin: 06/18/21 20:44 Dose: 64 mg Documented by: Montelukast Sodium (Montelukast 10 Mg Tab) 10 mg PO BEDTIME [facility] Last Admin: 06/18/21 20:44 Dose: 10 mg Documented by: Omeprazole (Omeprazole 20 Mg Cap.Cr) 20 mg PO DAILY [facility] Last Admin: 06/19/21 09:14 Dose: 20 mg Documented by: Prednisone (Prednisone 5 Mg Tab) 5 mg PO DAILY [facility] Last Admin: 06/19/21 09:14 Dose: 5 mg Documented by: Discontinued Medications Albuterol/Ipratropium (Albuterol/Ipratropium 3.0-0.5 Mg/3 Ml Neb Soln) 3 ml NEB ONETIME ONE Stop: 06/18/21 10:15 Last Admin: 06/18/21 10:48 Dose: 3 ml Documented by: Budesonide (Budesonide 0.5 Mg/2 Ml Neb Susp) 0.5 mg INH BID PRN PRN Reason: Shortness of Breath Last Admin: 06/19/21 03:30 Dose: 0.5 mg Documented by: Ceftriaxone Sodium (Ceftriaxone 2 Gm Vial) 2 gm IVPUSH ONETIME ONE Stop: 06/18/21 12:12 Last Admin: 06/18/21 12:43 Dose: 2 gm Documented by: Hydrocortisone Sodium Succinate (Hydrocortisone Sodium Succinate 100 Mg/2 Ml Sdv) 100 mg IVPUSH ONETIME ONE Stop: 06/19/21 02:20 Last Admin: 06/19/21 02:34 Dose: 100 mg Documented by: Magnesium Sulfate 2 gm/ Premix 50 mls @ 50 mls/hr IV ONETIME ONE Stop: 06/19/21 03:19 Last Admin: 06/19/21 02:38 Dose: 50 mls/hr Documented by: - Exam Quality Assessment: Supplemental Oxygen. No: Urine Catheter General: Alert, Cooperative, Other (at baseline given known cognitive impairment) HEENT: Pupils Equal, Mucous Membr. Moist/[place] Neck: Supple Lungs: Decreased Breath Sounds, Rales, Rhonchi, Other (coarse throughout) Cardiovascular: Regular Rate, Regular Rhythm, No Murmurs GI/Abdominal Exam: Normal Bowel Sounds, Soft, Non-Tender (Male) Exam: Deferred Extremities: Non-Tender, No Pedal Edema Peripheral Pulses: 2+: Dorsalis Pedis (L), Dorsalis Pedis (R) Skin: Warm, Dry, Intact Neurological: No New Focal Deficit Psy/Mental Status: Alert, Depressed - Patient Data Lab Results Last 24 hrs: Laboratory Results - last 24 hr 06/18/21 06/18/21 06/19/21 Range/Units 10:40 12:10 04:10 WBC (5.00-10.00) 10^3/uL RBC (4.50-6.00) 10^6/uL Hgb (13.0-17.0) g/dL Hct (40.0-52.0) % MCV (82.0-92.0) fL MCH (27.0-31.0) pg MCHC (32.0-36.0) g/dL RDW (11.5-14.5) % Plt Count (150-400) 10^3/uL MPV (7.4-10.4) fL Immature Gran % (Auto) (0.0-5.0) % Neut % (Auto) (50.0-70.0) % Lymph % (Auto) (20.0-40.0) % Griggs % (Auto) (2.0-8.0) % Eos % (Auto) (1.0-3.0) % Baso % (Auto) (0.0-1.0) % Neut # (Auto) (2.50-7.00) 10^3/uL Lymph # (Auto) (1.00-4.00) 10^3/uL Griggs # (Auto) (0.10-0.80) 10^3/uL Eos # (Auto) (0.10-0.30) 10^3/uL Baso # (Auto) (0.00-0.10) 10^3/uL Immature Gran # (Auto) (0.00-0.50) 10^3/uL ABG pH 7.37 (7.35-7.45) ABG pCO2 53 H (35-45) mmHG ABG pO2 73 L (80-105) mmHG ABG HCO3 30.6 H (22-26) mmol/L ABG Total CO2 31 H (23-27) mmol/L ABG O2 Saturation 94 L (95-98) % ABG Base Excess 4 H (-2-3) mmol/L O2 Delivery Device Simple mask Sodium (136-145) mmol/L Potassium (3.5-5.1) mmol/L Chloride (98-107) mmol/L Carbon Dioxide (21.0-32.0) mmol/L Anion Gap (5-15) mmol/L BUN (7-18) mg/dL Creatinine (0.51-1.17) mg/dL Est Cr Clr Drug Dosing mL/min Estimated GFR (MDRD) mL/min Glucose (70-140) mg/dL Lactic Acid (0.4-2.0) mmol/L Calcium (8.7-10.3) mg/dL Magnesium (1.8-2.4) mg/dL Total Bilirubin (0.2-1.0) mg/dL AST (15-37) U/L ALT (14-63) U/L Alkaline Phosphatase (46-116) U/L C-Reactive Protein (0.0-0.9) mg/dL B-Natriuretic Peptide 291 H (0-100) pg/mL Total Protein (6.4-8.2) g/dL Albumin (3.40-5.00) g/dL SARS CoV-2 RNA Rapid KISHAN Negative (NEGATIVE) 06/19/21 06/19/21 06/19/21 Range/Units 07:30 07:30 07:35 WBC 13.58 H (5.00-10.00) 10^3/uL RBC 3.90 L (4.50-6.00) 10^6/uL Hgb 12.0 L (13.0-17.0) g/dL Hct 36.3 L (40.0-52.0) % MCV 93.1 H (82.0-92.0) fL MCH 30.8 (27.0-31.0) pg MCHC 33.1 (32.0-36.0) g/dL RDW 14.0 (11.5-14.5) % Plt Count 192 (150-400) 10^3/uL MPV 9.8 (7.4-10.4) fL Immature Gran % (Auto) 4.3 (0.0-5.0) % Neut % (Auto) 88.4 H (50.0-70.0) % Lymph % (Auto) 2.7 L (20.0-40.0) % Griggs % (Auto) 4.5 (2.0-8.0) % Eos % (Auto) 0.0 L (1.0-3.0) % Baso % (Auto) 0.1 (0.0-1.0) % Neut # (Auto) 12.02 H (2.50-7.00) 10^3/uL Lymph # (Auto) 0.36 L (1.00-4.00) 10^3/uL Griggs # (Auto) 0.61 (0.10-0.80) 10^3/uL Eos # (Auto) 0.00 L (0.10-0.30) 10^3/uL Baso # (Auto) 0.01 (0.00-0.10) 10^3/uL Immature Gran # (Auto) 0.58 H (0.00-0.50) 10^3/uL ABG pH (7.35-7.45) ABG pCO2 (35-45) mmHG ABG pO2 (80-105) mmHG ABG HCO3 (22-26) mmol/L ABG Total CO2 (23-27) mmol/L ABG O2 Saturation (95-98) % ABG Base Excess (-2-3) mmol/L O2 Delivery Device Sodium (136-145) mmol/L Potassium (3.5-5.1) mmol/L Chloride (98-107) mmol/L Carbon Dioxide (21.0-32.0) mmol/L Anion Gap (5-15) mmol/L BUN (7-18) mg/dL Creatinine (0.51-1.17) mg/dL Est Cr Clr Drug Dosing mL/min Estimated GFR (MDRD) mL/min Glucose (70-140) mg/dL Lactic Acid 3.4 H (0.4-2.0) mmol/L Calcium (8.7-10.3) mg/dL Magnesium 2.0 (1.8-2.4) mg/dL Total Bilirubin (0.2-1.0) mg/dL AST (15-37) U/L ALT (14-63) U/L Alkaline Phosphatase (46-116) U/L C-Reactive Protein 5.0 H (0.0-0.9) mg/dL B-Natriuretic Peptide (0-100) pg/mL Total Protein (6.4-8.2) g/dL Albumin (3.40-5.00) g/dL SARS CoV-2 RNA Rapid KISHAN (NEGATIVE) 06/19/21 Range/Units 07:35 WBC (5.00-10.00) 10^3/uL RBC (4.50-6.00) 10^6/uL Hgb (13.0-17.0) g/dL Hct (40.0-52.0) % MCV (82.0-92.0) fL MCH (27.0-31.0) pg MCHC (32.0-36.0) g/dL RDW (11.5-14.5) % Plt Count (150-400) 10^3/uL MPV (7.4-10.4) fL Immature Gran % (Auto) (0.0-5.0) % Neut % (Auto) (50.0-70.0) % Lymph % (Auto) (20.0-40.0) % Griggs % (Auto) (2.0-8.0) % Eos % (Auto) (1.0-3.0) % Baso % (Auto) (0.0-1.0) % Neut # (Auto) (2.50-7.00) 10^3/uL Lymph # (Auto) (1.00-4.00) 10^3/uL Griggs # (Auto) (0.10-0.80) 10^3/uL Eos # (Auto) (0.10-0.30) 10^3/uL Baso # (Auto) (0.00-0.10) 10^3/uL Immature Gran # (Auto) (0.00-0.50) 10^3/uL ABG pH (7.35-7.45) ABG pCO2 (35-45) mmHG ABG pO2 (80-105) mmHG ABG HCO3 (22-26) mmol/L ABG Total CO2 (23-27) mmol/L ABG O2 Saturation (95-98) % ABG Base Excess (-2-3) mmol/L O2 Delivery Device Sodium 137 (136-145) mmol/L Potassium 4.7 (3.5-5.1) mmol/L Chloride 97 L (98-107) mmol/L Carbon Dioxide 31.8 (21.0-32.0) mmol/L Anion Gap 12.9 (5-15) mmol/L BUN 35 H (7-18) mg/dL Creatinine 0.82 (0.51-1.17) mg/dL Est Cr Clr Drug Dosing 62.14 mL/min Estimated GFR (MDRD) > 60 mL/min Glucose 138 (70-140) mg/dL Lactic Acid (0.4-2.0) mmol/L Calcium 8.9 (8.7-10.3) mg/dL Magnesium (1.8-2.4) mg/dL Total Bilirubin 0.5 (0.2-1.0) mg/dL AST 78 H (15-37) U/L ALT 27 (14-63) U/L Alkaline Phosphatase 64 (46-116) U/L C-Reactive Protein (0.0-0.9) mg/dL B-Natriuretic Peptide (0-100) pg/mL Total Protein 6.7 (6.4-8.2) g/dL Albumin 2.92 L (3.40-5.00) g/dL SARS CoV-2 RNA Rapid KISHAN (NEGATIVE) Result Diagrams: 06/20/21 07:25 06/20/21 07:25 Sepsis Event Note - Evaluation Sepsis Screening Result: Possible Sepsis Risk - Focused Exam Vital Signs: Vital Signs Temp Pulse Pulse Resp BP Pulse Ox Pulse Ox 06/19/21 11:12 90 L 06/19/21 10:37 92 L 06/19/21 10:02 98 06/19/21 07:44 97 06/19/21 07:38 90 L 06/19/21 07:37 85 L 06/19/21 06:16 97.6 F 99 24 H 145/62 H 91 L 06/19/21 05:50 96 06/19/21 03:32 93 06/19/21 02:15 97.6 F 95 30 H 125/67 93 L 06/19/21 01:36 96 06/19/21 01:00 98 30 H 90 L 06/18/21 23:45 103 H 06/18/21 23:44 101 H Pulse Ox Pulse Ox 06/19/21 11:12 06/19/21 10:37 06/19/21 10:02 06/19/21 07:44 06/19/21 07:38 06/19/21 07:37 06/19/21 06:16 06/19/21 05:50 86 L 06/19/21 03:32 90 L 06/19/21 02:15 06/19/21 01:36 93 L 06/19/21 01:00 06/18/21 23:45 91 L 06/18/21 23:44 88 L - Problem List Review Problem List Initiated/Reviewed/Updated: Yes - My Orders Last 24 Hours: My Active Orders 06/19/21 09:36 PROCALCITONIN [REF] Routine 06/19/21 09:45 Sodium Chloride 0.9% [Normal Saline] 1,000 ml IV ASDIRECTED 06/19/21 11:00 Hydrocortisone Sod Succinate [Solu-CORTEF] 100 mg IVPUSH Q8H 06/19/21 11:19 Code Status [Resuscitation Status] Routine 06/19/21 11:21 Consult to Hospice [CONS] Routine 06/20/21 05:11 BMP [BASIC METABOLIC PANEL,BMP] [CHEM] AM CBC WITH AUTO DIFF [HEME] AM - Assessment Assessment:: HPI summary: Patient had presented to the [facility] for his scheduled oncology followup and was noted to be cyanotic with O2 sat in the 50s. Patient is oxygen dependent and typically uses 3-3.5L by NC at home, he was on a lower flow rate on the portable in the car and walked into the clinic without oxygen applied. Patient reported worsened SOB over the last few days with a "loose rattling" sound. He has a chronic cough which has been unchanged. He has duonebs at home BID, had not used any nebs prior to his appointment. He is on chronic prednisone at home. Past medical history is significant for small cell lung cancer, COPD, tobacco dependence. ED course: WBC 13.29 (86.5% neutrophils), Hgb 12.0, Plt 186. Lactic acid 1.9. BUN 43, creatinine 0.96, BNP 291, AST 72. CXR consistent with pneumonia and L hilar mass noted. Radiology recommended CT chest for further evaluation of adenopathy. Rocephin 2g IV given in ER. BC x 2 pending. Patient admitted to inpatient status per Dr Lobo. Hospital course: 06/19/21: Overnight patient had an episode of respiratory distress with malini ucortef 100mg IV, Mag sulfate 2gm, mucinex, duonebs given per Dr Lobo. ABG's obtained: pH 7.37, CO2 53, PO2 73, HCO3 30.6, O2 sat 94%. Patient responded to medications given. CT chest ordered for this morning for further evaluation of pneumonia vs pneumonitis and further evaluation of lymphadenopathy however this was held due to elevated BUN. IV fluids initiated at 75ml/hr for hydration. Patient denies feeling overly short of breath this morning low 90s on 4L O2. Discussed code status with patient, and daughter and code status changed to DNR/DNI with POLST updated. Hospice referral placed due to diagnosis of terminal lung cancer per family request. Patient's acknowledged that she understands that there is no cure for patient's type of lung cancer and that his main concerns is what would happen for her if he would pass away. Discussed possible use of BIPAP should patient's respiratory status decline. Patient states that he does not wish to be transferred to [place] for a decline in his condition. Lactic acid 3.4, Mg 2.0, CRP 5.0. WBC 13.58 (88.4% neutrophils), BUN 35. Vitals stable. Will continue current plan of care including IV antibiotics, IV steroids and plan to obtain CT scan if BUN improves. Hospitalization problems and plan: # Acute on chronic respiratory failure # Pneumonia # Small cell lung cancer # COPD # Elevated lactic acid - Continue Rocephin 2g IV daily - Continue levaquin 750mg IV daily - Continue solucortef 100mg Q8H per Dr Lobo - Continue duonebs Q6H PRN - Continue albuterol nebs Q4H PRN - Continue budesonide nebs BID - Continue fomoterol nebs BID - Continue mucinex 600mg PO BID - Repeat CBC in am - Procalcitonin pending - Blood cultures NGTD X 1 day - Continuous pulse oximetry # Elevated BUN - Repeat BMP in am - IVF NS 75ml/hr Chronic, stable conditions: # Congestive heart failure # CAD - Continue lisinopril 2.5mg PO daily, continue aspirin 81mg EC daily # Hx of NSTEMI # Cephalix vein thrombosis, left - continue apixaban 5mg PO BID # Hyperlipidemia - atorvastatin 20mg PO daily # GERD - continue omeprazole 20mg PO daily # Osteoporosis - Continue vitamin D3 2000units PO daily # Anemia due to antineoplastic chemotherapy # Chronic fatigue # Allergic rhinitis - continue montelukast 10mg PO daily # Tobacco dependence # Hypomagnesemia - Continue magnesium chloride 64mg PO daily # Constipation - continue docusate sodium daily Hospitalization details: # FEN: NS 75ml/hr, electrolytes stable, regular diet # PPX: Continue home omeprazole, apixaban # Code status: DNR/DNI, POLST updated 06/19/21 # Emergency contact: & daughter updated on rounds this morning. # Disposition: Patient to continue inpatient status for IV antibiotics for treatment of pneumonia. Hospice referral placed today and consultation planned for tomorrow, 06/20/21 to discuss placing patient
[2021-06-19] MEDS: cefTRIAXone 1 GM Vial IVPUSH SCH (12:39)
[2021-06-19] MEDS ORDERED: Budesonide 0.5 MG/2 ML Neb Susp INH PRN (15:51)
[2021-06-19] MEDS: Levofloxacin/Dextrose 5%-Water 500 MG in Premix Bag 1 BAG IV SCH (17:42)
[2021-06-19] MEDS: Aspirin 81 MG Tab.Chew PO SCH (20:09)
[2021-06-19] MEDS: Magnesium Chloride 64 MG Tab.ER PO SCH (20:09)
[2021-06-19] MEDS: Lisinopril 5 MG Tab PO SCH (20:10)
[2021-06-19] MEDS: Docusate Sodium 100 MG Cap PO SCH (20:12)
[2021-06-19] MEDS: Montelukast 10 MG Tab PO SCH (20:18)
[2021-06-20] MEDS: Sodium Chloride 0.9% 1,000 ML IV SCH ×2 (00:32→23:27)
[2021-06-20] MEDS: Albuterol/Ipratropium 3.0-0.5 MG/3 ML Neb Soln INH PRN (01:46)
[2021-06-20] MEDS: Hydrocortisone Sodium Succinate 250 MG/2 ML SDV IVPUSH SCH ×2 (03:40→10:53)
[2021-06-20] MEDS: Albuterol 0.083% 2.5 MG/3 ML Neb Soln INH PRN (06:02)
[2021-06-20 07:53] LABS: CHLORIDE,CL 98 mmol/L (98-107); SODIUM,NA 135 mmol/L (136-145)
[2021-06-20] MEDS: Cholecalciferol (Vitamin D3) 25 MCG Tab PO SCH (08:13)
[2021-06-20] MEDS: Apixaban 5 MG Tab PO SCH (08:13)
[2021-06-20] MEDS: Omeprazole 20 MG Cap.CR PO SCH (08:14)
[2021-06-20] MEDS: guaiFENesin 600 MG Tab.ER PO SCH (08:14)
[2021-06-20] MEDS: atorvaSTATin 10 MG Tab PO SCH (08:14)
[2021-06-20] MEDS: predniSONE 5 MG Tab PO SCH (08:14)
[2021-06-20] MEDS: Budesonide 0.5 MG/2 ML Neb Susp INH SCH ×2 (08:34→20:22)
--- NOTE | 2021-06-20 08:51 | PCM.PN ---
- General Info Date of Service: 06/20/21 Subjective Update: Patient reports he can "catch his air" today. Feels somewhat better and is asking when he can go home. Functional Status: Reports: Pain Controlled, Tolerating Diet. Denies: New Symptoms - Review of Systems General: Reports: Weakness. Denies: Fever, Chills HEENT: Reports: No Symptoms Pulmonary: Reports: Shortness of Breath, Cough. Denies: Hemoptysis Cardiovascular: Reports: Dyspnea on Exertion Gastrointestinal: Reports: No Symptoms Genitourinary: Reports: No Symptoms Musculoskeletal: Reports: No Symptoms Skin: Reports: No Symptoms Neurological: Reports: No Symptoms Psychiatric: Reports: No Symptoms - Patient Data Vitals - Most Recent: Last Vital Signs Temp 97.7 F 06/20/21 06:05 Pulse 83 06/20/21 06:05 Resp 20 06/20/21 06:05 BP 134/69 06/20/21 06:05 Pulse Ox 85 L 06/20/21 06:05 Weight - Most Recent: 141 lb 14.4 oz I&O - Last 24 Hours: Intake & Output 06/19/21 06/20/21 06/20/21 22:59 06:59 14:59 Intake Total 300 1795 Output Total 700 120 Balance -400 1675 Lab Results Last 24 Hours: Laboratory Results - last 24 hr 06/19/21 06/19/21 06/20/21 Range/Units 07:30 07:30 07:25 WBC 13.29 H (5.00-10.00) 10^3/uL RBC 3.80 L (4.50-6.00) 10^6/uL Hgb 11.7 L (13.0-17.0) g/dL Hct 35.6 L (40.0-52.0) % MCV 93.7 H (82.0-92.0) fL MCH 30.8 (27.0-31.0) pg MCHC 32.9 (32.0-36.0) g/dL RDW 14.0 (11.5-14.5) % Plt Count 173 (150-400) 10^3/uL MPV 9.9 (7.4-10.4) fL Add Manual Diff Yes Neutrophils % (Manual) 94 H (50-70) % Band Neutrophils % 2 L (4-12) % Lymphocytes % (Manual) 0 L (20-40) % Atypical Lymphs % 0 Monocytes % (Manual) 2 (2-8) % Eosinophils % (Manual) 0 L (1-3) % Basophils % (Manual) 0 (0-1) % Metamyelocytes % 1 Myelocytes % 1 Hypersegmented Neuts Few Toxic Granulation 1+ slight Platelet Estimate Adequate Sodium (136-145) mmol/L Potassium (3.5-5.1) mmol/L Chloride (98-107) mmol/L Carbon Dioxide (21.0-32.0) mmol/L Anion Gap (5-15) mmol/L BUN (7-18) mg/dL Creatinine (0.51-1.17) mg/dL Est Cr Clr Drug Dosing mL/min Estimated GFR (MDRD) mL/min Glucose (70-140) mg/dL Lactic Acid 3.4 H (0.4-2.0) mmol/L Calcium (8.7-10.3) mg/dL Magnesium 2.0 (1.8-2.4) mg/dL C-Reactive Protein 5.0 H (0.0-0.9) mg/dL 06/20/21 06/20/21 Range/Units 07:25 07:25 WBC (5.00-10.00) 10^3/uL RBC (4.50-6.00) 10^6/uL Hgb (13.0-17.0) g/dL Hct (40.0-52.0) % MCV (82.0-92.0) fL MCH (27.0-31.0) pg MCHC (32.0-36.0) g/dL RDW (11.5-14.5) % Plt Count (150-400) 10^3/uL MPV (7.4-10.4) fL Add Manual Diff Neutrophils % (Manual) (50-70) % Band Neutrophils % (4-12) % Lymphocytes % (Manual) (20-40) % Atypical Lymphs % Monocytes % (Manual) (2-8) % Eosinophils % (Manual) (1-3) % Basophils % (Manual) (0-1) % Metamyelocytes % Myelocytes % Hypersegmented Neuts Toxic Granulation Platelet Estimate Sodium 135 L (136-145) mmol/L Potassium 4.3 (3.5-5.1) mmol/L Chloride 98 (98-107) mmol/L Carbon Dioxide 29.3 (21.0-32.0) mmol/L Anion Gap 12.0 (5-15) mmol/L BUN 30 H (7-18) mg/dL Creatinine 0.70 (0.51-1.17) mg/dL Est Cr Clr Drug Dosing 72.79 mL/min Estimated GFR (MDRD) > 60 mL/min Glucose 166 H (70-140) mg/dL Lactic Acid 4.0 H (0.4-2.0) mmol/L Calcium 8.5 L (8.7-10.3) mg/dL Magnesium (1.8-2.4) mg/dL C-Reactive Protein (0.0-0.9) mg/dL Cong Results Last 24 Hours: Microbiology 06/18/21 12:50 Aerobic Blood Culture - Preliminary Blood - Venous - Lab Draw NO GROWTH AFTER 1 DAY Anaerobic Blood Culture - Preliminary NO GROWTH AFTER 1 DAY 06/18/21 12:35 Aerobic Blood Culture - Preliminary Blood - Venous NO GROWTH AFTER 1 DAY Anaerobic Blood Culture - Preliminary NO GROWTH AFTER 1 DAY Med Orders - Current: Current Medications Acetaminophen (Acetaminophen 650 Mg Tab.Er) 650 mg PO BID PRN PRN Reason: Pain Last Admin: 06/19/21 20:12 Dose: 650 mg Documented by: Albuterol (Albuterol 0.083% 2.5 Mg/3 Ml Neb Soln) 2.5 mg INH Q4H PRN PRN Reason: Dyspnea Last Admin: 06/20/21 06:02 Dose: 2.5 mg Documented by: Albuterol/Ipratropium (Albuterol/Ipratropium 3.0-0.5 Mg/3 Ml Neb Soln) 3 ml INH Q6H PRN PRN Reason: Shortness of Breath Last Admin: 06/20/21 01:46 Dose: 3 ml Documented by: Apixaban (Apixaban 5 Mg Tab) 5 mg PO BID [facility] Last Admin: 06/20/21 08:13 Dose: 5 mg Documented by: Aspirin (Aspirin 81 Mg Tab.Chew) 81 mg PO BEDTIME [facility] Last Admin: 06/19/21 20:09 Dose: 81 mg Documented by: Atorvastatin Calcium (Atorvastatin 10 Mg Tab) 20 mg PO QAM [facility] Last Admin: 06/20/21 08:14 Dose: 20 mg Documented by: Budesonide (Budesonide 0.5 Mg/2 Ml Neb Susp) 0.5 mg INH BIDRT [facility] Last Admin: 06/20/21 08:34 Dose: 0.5 mg Documented by: Ceftriaxone Sodium (Ceftriaxone 1 Gm Vial) 1 gm IVPUSH Q24H [facility] Last Admin: 06/19/21 12:39 Dose: 1 gm Documented by: Cholecalciferol (Cholecalciferol (Vitamin D3) 25 Mcg Tab) 50 mcg PO DAILY [facility] Last Admin: 06/20/21 08:13 Dose: 50 mcg Documented by: Docusate Sodium (Docusate Sodium 100 Mg Cap) 200 mg PO BEDTIME [facility] Last Admin: 06/19/21 20:12 Dose: 200 mg Documented by: Formoterol Fumarate (Formoterol 20 Mcg/2 Ml Neb) 20 mcg INH BID [facility] Last Admin: 06/19/21 20:27 Dose: 20 mcg Documented by: Guaifenesin (Guaifenesin 600 Mg Tab.Er) 600 mg PO BID [facility] Last Admin: 06/20/21 08:14 Dose: 600 mg Documented by: Hydrocortisone Sodium Succinate (Hydrocortisone Sodium Succinate 250 Mg/2 Ml Sdv) 100 mg IVPUSH Q8H [facility] Last Admin: 06/20/21 03:40 Dose: 100 mg Documented by: Levofloxacin/Dextrose 500 mg/ (Premix) 100 mls @ 100 mls/hr IV Q24H [facility] Last Admin: 06/19/21 17:42 Dose: 100 mls/hr Documented by: Sodium Chloride (Normal Saline) 100 mls @ 50 mls/hr IV ASDIRECTED [facility] Last Admin: 06/18/21 18:28 Dose: 50 mls/hr Documented by: Sodium Chloride (Normal Saline) 1,000 mls @ 75 mls/hr IV ASDIRECTED [facility] Last Admin: 06/20/21 00:32 Dose: 75 mls/hr Documented by: Lisinopril (Lisinopril 5 Mg Tab) 2.5 mg PO QPM [facility] Last Admin: 06/19/21 20:10 Dose: 2.5 mg Documented by: Magnesium Chloride (Magnesium Chloride 64 Mg Tab.Er) 64 mg PO BEDTIME [facility] Last Admin: 06/19/21 20:09 Dose: 64 mg Documented by: Montelukast Sodium (Montelukast 10 Mg Tab) 10 mg PO BEDTIME [facility] Last Admin: 06/19/21 20:18 Dose: 10 mg Documented by: Omeprazole (Omeprazole 20 Mg Cap.Cr) 20 mg PO DAILY [facility] Last Admin: 06/20/21 08:14 Dose: 20 mg Documented by: Prednisone (Prednisone 5 Mg Tab) 5 mg PO DAILY [facility] Last Admin: 06/20/21 08:14 Dose: 5 mg Documented by: Discontinued Medications Albuterol/Ipratropium (Albuterol/Ipratropium 3.0-0.5 Mg/3 Ml Neb Soln) 3 ml NEB ONETIME ONE Stop: 06/18/21 10:15 Last Admin: 06/18/21 10:48 Dose: 3 ml Documented by: Budesonide (Budesonide 0.5 Mg/2 Ml Neb Susp) 0.5 mg INH BID PRN PRN Reason: Shortness of Breath Last Admin: 06/19/21 03:30 Dose: 0.5 mg Documented by: Ceftriaxone Sodium (Ceftriaxone 2 Gm Vial) 2 gm IVPUSH ONETIME ONE Stop: 06/18/21 12:12 Last Admin: 06/18/21 12:43 Dose: 2 gm Documented by: Hydrocortisone Sodium Succinate (Hydrocortisone Sodium Succinate 100 Mg/2 Ml Sdv) 100 mg IVPUSH ONETIME ONE Stop: 06/19/21 02:20 Last Admin: 06/19/21 02:34 Dose: 100 mg Documented by: Hydrocortisone Sodium Succinate (Hydrocortisone Sodium Succinate 100 Mg/2 Ml Sdv) 100 mg IVPUSH Q8H [facility] Stop: 06/19/21 21:00 Last Admin: 06/19/21 18:38 Dose: 100 mg Documented by: Magnesium Sulfate 2 gm/ Premix 50 mls @ 50 mls/hr IV ONETIME ONE Stop: 06/19/21 03:19 Last Admin: 06/19/21 02:38 Dose: 50 mls/hr Documented by: - Exam Quality Assessment: Supplemental Oxygen General: Alert, Oriented, Cooperative, No Acute Distress HEENT: Pupils Equal, Mucous Membr. Moist/[place] Neck: Supple Lungs: Decreased Breath Sounds, Crackles, Rales, Rhonchi Cardiovascular: Regular Rate, Regular Rhythm, No Murmurs GI/Abdominal Exam: Normal Bowel Sounds, Soft, Non-Tender, No Distention (Male) Exam: Deferred Back Exam: Normal Inspection, Full Range of Motion Extremities: Normal Inspection, Normal Range of Motion, Non-Tender, No Pedal Joe ma, Normal Capillary Refill Peripheral Pulses: 2+: Dorsalis Pedis (L), Dorsalis Pedis (R) Skin: Warm, Dry, Intact Neurological: No New Focal Deficit Psy/Mental Status: Alert, Normal Affect, Normal Mood - Patient Data Lab Results Last 24 hrs: Laboratory Results - last 24 hr 06/19/21 06/19/21 06/20/21 Range/Units 07:30 07:30 07:25 WBC 13.29 H (5.00-10.00) 10^3/uL RBC 3.80 L (4.50-6.00) 10^6/uL Hgb 11.7 L (13.0-17.0) g/dL Hct 35.6 L (40.0-52.0) % MCV 93.7 H (82.0-92.0) fL MCH 30.8 (27.0-31.0) pg MCHC 32.9 (32.0-36.0) g/dL RDW 14.0 (11.5-14.5) % Plt Count 173 (150-400) 10^3/uL MPV 9.9 (7.4-10.4) fL Add Manual Diff Yes Neutrophils % (Manual) 94 H (50-70) % Band Neutrophils % 2 L (4-12) % Lymphocytes % (Manual) 0 L (20-40) % Atypical Lymphs % 0 Monocytes % (Manual) 2 (2-8) % Eosinophils % (Manual) 0 L (1-3) % Basophils % (Manual) 0 (0-1) % Metamyelocytes % 1 Myelocytes % 1 Hypersegmented Neuts Few Toxic Granulation 1+ slight Platelet Estimate Adequate Sodium (136-145) mmol/L Potassium (3.5-5.1) mmol/L Chloride (98-107) mmol/L Carbon Dioxide (21.0-32.0) mmol/L Anion Gap (5-15) mmol/L BUN (7-18) mg/dL Creatinine (0.51-1.17) mg/dL Est Cr Clr Drug Dosing mL/min Estimated GFR (MDRD) mL/min Glucose (70-140) mg/dL Lactic Acid 3.4 H (0.4-2.0) mmol/L Calcium (8.7-10.3) mg/dL Magnesium 2.0 (1.8-2.4) mg/dL C-Reactive Protein 5.0 H (0.0-0.9) mg/dL 06/20/21 06/20/21 Range/Units 07:25 07:25 WBC (5.00-10.00) 10^3/uL RBC (4.50-6.00) 10^6/uL Hgb (13.0-17.0) g/dL Hct (40.0-52.0) % MCV (82.0-92.0) fL MCH (27.0-31.0) pg MCHC (32.0-36.0) g/dL RDW (11.5-14.5) % Plt Count (150-400) 10^3/uL MPV (7.4-10.4) fL Add Manual Diff Neutrophils % (Manual) (50-70) % Band Neutrophils % (4-12) % Lymphocytes % (Manual) (20-40) % Atypical Lymphs % Monocytes % (Manual) (2-8) % Eosinophils % (Manual) (1-3) % Basophils % (Manual) (0-1) % Metamyelocytes % Myelocytes % Hypersegmented Neuts Toxic Granulation Platelet Estimate Sodium 135 L (136-145) mmol/L Potassium 4.3 (3.5-5.1) mmol/L Chloride 98 (98-107) mmol/L Carbon Dioxide 29.3 (21.0-32.0) mmol/L Anion Gap 12.0 (5-15) mmol/L BUN 30 H (7-18) mg/dL Creatinine 0.70 (0.51-1.17) mg/dL Est Cr Clr Drug Dosing 72.79 mL/min Estimated GFR (MDRD) > 60 mL/min Glucose 166 H (70-140) mg/dL Lactic Acid 4.0 H (0.4-2.0) mmol/L Calcium 8.5 L (8.7-10.3) mg/dL Magnesium (1.8-2.4) mg/dL C-Reactive Protein (0.0-0.9) mg/dL Result Diagrams: 06/20/21 07:25 06/20/21 07:25 Cong Results Last 24 hrs: Microbiology 06/18/21 12:50 Aerobic Blood Culture - Preliminary Blood - Venous - Lab Draw NO GROWTH AFTER 1 DAY Anaerobic Blood Culture - Preliminary NO GROWTH AFTER 1 DAY 06/18/21 12:35 Aerobic Blood Culture - Preliminary Blood - Venous NO GROWTH AFTER 1 DAY Anaerobic Blood Culture - Preliminary NO GROWTH AFTER 1 DAY Sepsis Event Note - Evaluation Sepsis Screening Result: Severe Sepsis Risk - Focused Exam Vital Signs: Vital Signs Temp Pulse Resp BP Pulse Ox 06/20/21 06:05 97.7 F 83 20 134/69 85 L 06/20/21 03:00 97.3 F 90 24 H 131/67 85 L 06/19/21 22:29 97.9 F 95 24 H 122/61 89 L - Problem List Review Problem List Initiated/Reviewed/Updated: Yes - My Orders Last 24 Hours: My Active Orders 06/19/21 09:36 PROCALCITONIN [REF] Routine 06/19/21 09:45 Sodium Chloride 0.9% [Normal Saline] 1,000 ml IV ASDIRECTED 06/19/21 11:19 Code Status [Resuscitation Status] Routine 06/19/21 11:21 Consult to Hospice [CONS] Routine 06/20/21 03:00 Hydrocortisone Sod Succinate [Solu-CORTEF] 100 mg IVPUSH Q8H - Assessment Assessment:: HPI summary: Patient had presented to the [facility] for his scheduled oncology followup and was noted to be cyanotic with O2 sat in the 50s. Patient is oxygen dependent and typically uses 3-3.5L by NC at home, he was on a lower flow rate on the portable in the car and walked into the clinic without oxygen applied. Patient reported worsened SOB over the last few days with a "loose rattling" sound. He has a chronic cough which has been unchanged. He has duonebs at home BID, had not used any nebs prior to his appointment. He is on chronic prednisone at home. Past medical history is significant for small cell lung cancer, COPD, tobacco dependence. ED course: WBC 13.29 (86.5% neutrophils), Hgb 12.0, Plt 186. Lactic acid 1.9. BUN 43, creatinine 0.96, BNP 291, AST 72. CXR consistent with pneumonia and L hilar mass noted. Radiology recommended CT chest for further evaluation of adenopathy. Rocephin 2g IV given in ER. BC x 2 pending. Patient admitted to inpatient status per Dr Lobo. Hospital course: 06/19/21: Overnight patient had an episode of respiratory distress with solucortef 100mg IV, Mag sulfate 2gm, mucinex, duonebs given per Dr Lobo. ABG's obtained: pH 7.37, CO2 53, PO2 73, HCO3 30.6, O2 sat 94%. Patient responded to medications given. CT chest ordered for this morning for further evaluation of pneumonia vs pneumonitis and further evaluation of lymphadenopathy however this was held due to elevated BUN. IV fluids initiated at 75ml/hr for hydration. Patient denies feeling overly short of breath this morning low 90s on 4L O2. Discussed code status with patient, and daughter and code status changed to DNR/DNI with POLST updated. Hospice referral placed due to diagnosis of terminal lung cancer per family request. Patient's acknowledged that she understands that there is no cure for patient's type of lung cancer and that his main concerns is what would happen for her if he would pass away. Discussed possible use of BIPAP should patient's respiratory status decline. Patient states that he does not wish to be transferred to [place] for a decline in his condition. Lactic acid 3.4, Mg 2.0, CRP 5.0. WBC 13.58 (88.4% neutrophils), BUN 35. Vitals stable. Will continue current plan of care including IV antibiotics, IV steroids and plan to obtain CT scan if BUN improves. 06/20/21: Patient reports feeling better this morning, "I can catch some air." Patient requesting to go home. Lung sounds unchanged - continues with audible coarse lung sounds, crackles, rales, rhonchi on auscultation. O2 4-5L NC to ezekiel ntain sat > 88%. WBC 13.29 (neutrophils 94%), Hgb 11.7, BUN 30, LA 4.0. Increased IVF to 200ml/hr for 3 hours for 30ml/kg bolus due to elevated lactic acid (570ml). BMI 19.2. Repeat Lactic acid at 1300. Per RT D/C performist and scheduled duonebs Q6H, increased frequency of albuterol nebs to Q2H PRN. CT chest remains on hold given BUN. CBC, BMP, CRP ordered for Thursday am. Hospice consultation scheduled for 1330 this afternoon. Further plan of care dependent on outcomes of hospice meeting and patient/family desires to continue current plan of care. Hospitalization problems and plan: # Acute on chronic hypoxic respiratory failure # Pneumonia # Small cell lung cancer # COPD # Elevated lactic acid - initial result of 1.9, repeat 3.4 on 06/19, 4.0 this am. Fluid bolus of 30ml/kg given = 570ml. - Continue Rocephin 2g IV daily - Continue levaquin 750mg IV daily - Continue solucortef 100mg Q8H per Dr Lobo - Scheduled duonebs Q6H - Changed frequency of albuterol nebs to Q2H PRN - Continue budesonide nebs BID - D/C fomoterol nebs BID per RT - Continue mucinex 600mg PO BID - Procalcitonin pending - Strep pneumoniae urine pending - Blood cultures NGTD X 1 day - Continuous pulse oximetry - Repeat CBC in am # Elevated BUN - Repeat BMP in am - IVF NS 75ml/hr # Malnutrition - BMI 19.2 Chronic, stable conditions: # Congestive heart failure # CAD - Continue lisinopril 2.5mg PO daily, continue aspirin 81mg EC daily # Hx of NSTEMI # Cephalix vein thrombosis, left - continue apixaban 5mg PO BID # Hyperlipidemia - atorvastatin 20mg PO daily # GERD - continue omeprazole 20mg PO daily # Osteoporosis - Continue vitamin D3 2000units PO daily # Anemia due to antineoplastic chemotherapy # Chronic fatigue # Allergic rhinitis - continue montelukast 10mg PO daily # Tobacco dependence # Hypomagnesemia - Continue magnesium chloride 64mg PO daily # Constipation - continue docusate sodium daily Hospitalization details: # FEN: NS 570ml bolus due to elevated lactic acid, then return to previous rate of 75ml/hr, electrolytes stable, regular diet # PPX: Continue home omeprazole, apixaban # Code status: DNR/DNI, POLST updated 06/19/21 # Emergency contact: & daughter updated on rounds this morning. # Disposition: Patient to continue inpatient status for IV antibiotics and IV fluids for treatment of pneumonia, elevated lactic acid. Hospice consultation today at 1330.
[2021-06-20] MEDS ORDERED: Sodium Chloride 0.9% 1,000 ML IV ONE (09:35)
[2021-06-20] MEDS ORDERED: Albuterol 0.083% 2.5 MG/3 ML Neb Soln INH PRN (09:54)
[2021-06-20] MEDS: Albuterol/Ipratropium 3.0-0.5 MG/3 ML Neb Soln INH SCH ×2 (11:15→15:33)
[2021-06-20] MEDS: cefTRIAXone 1 GM Vial IVPUSH SCH (12:44)
[2021-06-20] MEDS: Levofloxacin/Dextrose 5%-Water 500 MG in Premix Bag 1 BAG IV SCH (17:37)
[2021-06-20] MEDS ORDERED: Hydrocortisone Sodium Succinate 100 MG/2 ML SDV IVPUSH SCH (19:00)
[2021-06-20] MEDS ORDERED: LORazepam 2 MG/ML SDV IVPUSH ONE (19:07)
[2021-06-20] MEDS ORDERED: LORazepam 2 MG/ML SDV ONE (19:10)
[2021-06-20] MEDS: LORazepam 2 MG/ML SDV IVPUSH ONE ×2 (19:12→19:19)
[2021-06-20] MEDS ORDERED: Acetaminophen 650 MG Supp RECTAL PRN (20:15)
[2021-06-20] MEDS ORDERED: LORazepam 2 MG/ML SDV IVPUSH PRN ×2 (20:19→20:49)
[2021-06-20] MEDS ORDERED: Glycopyrrolate 0.2 MG/ML SDV IVPUSH PRN (20:20)
[2021-06-20] MEDS: HYDROmorphone 1 MG/ML Syringe IVPUSH PRN (20:54)
[2021-06-21] MEDS: Albuterol/Ipratropium 3.0-0.5 MG/3 ML Neb Soln INH SCH ×2 (03:09→05:41)
[2021-06-21] MEDS: Budesonide 0.5 MG/2 ML Neb Susp INH SCH (08:00)
[2021-06-21] MEDS: HYDROmorphone 1 MG/ML Syringe IVPUSH PRN (08:09)
--- NOTE | 2021-06-21 09:50 | PCM.PN ---
- General Info Date of Service: 06/20/21 Subjective Update: Patient unresponsive with increased respiratory distress. Family at side requesting comfort cares. Unable to obtain ROS as he is not answering questions. - Review of Systems General: Reports: No Symptoms HEENT: Reports: No Symptoms Pulmonary: Reports: No Symptoms Cardiovascular: Reports: No Symptoms Gastrointestinal: Reports: No Symptoms Genitourinary: Reports: No Symptoms Musculoskeletal: Reports: No Symptoms Skin: Reports: No Symptoms Neurological: Reports: No Symptoms Psychiatric: Reports: No Symptoms - Patient Data Vitals - Most Recent: Last Vital Signs Temp 35.6 C L 06/21/21 06:00 Pulse 98 06/21/21 06:00 Resp 14 06/21/21 06:00 BP 96/58 L 06/21/21 06:00 Pulse Ox 92 L 06/21/21 06:00 Weight - Most Recent: 64.365 kg I&O - Last 24 Hours: Intake & Output 06/20/21 06/21/21 06/21/21 22:59 06:59 14:59 Intake Total 250 1247 Output Total 350 Balance -100 1247 Lab Results Last 24 Hours: Laboratory Results - last 24 hr 06/20/21 06/20/21 06/20/21 Range/Units 07:25 13:00 19:10 Lactic Acid 3.6 H 2.6 H (0.4-2.0) mmol/L B-Natriuretic Peptide (0-100) pg/mL Procalcitonin 0.14 H ng/mL 06/20/21 Range/Units 19:10 Lactic Acid (0.4-2.0) mmol/L B-Natriuretic Peptide 514 H (0-100) pg/mL Procalcitonin ng/mL Cong Results Last 24 Hours: Microbiology 06/20/21 11:05 Streptococcus pneumoniae Antigen (M - Final Urine 06/18/21 12:50 Aerobic Blood Culture - Preliminary Blood - Venous - Lab Draw NO GROWTH AFTER 2 DAYS Anaerobic Blood Culture - Preliminary NO GROWTH AFTER 2 DAYS 06/18/21 12:35 Aerobic Blood Culture - Preliminary Blood - Venous NO GROWTH AFTER 2 DAYS Anaerobic Blood Culture - Preliminary NO GROWTH AFTER 2 DAYS Med Orders - Current: Current Medications Acetaminophen (Acetaminophen 650 Mg Supp) 650 mg RECTAL Q6H PRN PRN Reason: discomfort Albuterol (Albuterol 0.083% 2.5 Mg/3 Ml Neb Soln) 2.5 mg INH Q2H PRN PRN Reason: Dyspnea Albuterol/Ipratropium (Albuterol/Ipratropium 3.0-0.5 Mg/3 Ml Neb Soln) 3 ml INH Q6H [facility] Last Admin: 06/21/21 05:41 Dose: Not Given Documented by: Budesonide (Budesonide 0.5 Mg/2 Ml Neb Susp) 0.5 mg INH BIDRT MADDIE Last Admin: 06/20/21 20:22 Dose: 0.5 mg Documented by: Glycopyrrolate (Glycopyrrolate 0.2 Mg/Ml Sdv) 0.2 mg IVPUSH Q6H PRN PRN Reason: respiratory secretions Hydromorphone HCl (Hydromorphone 1 Mg/Ml Syringe) 0.5 mg IVPUSH Q1H PRN PRN Reason: dyspnea or agitation Last Admin: 06/21/21 08:09 Dose: 0.5 mg Documented by: Sodium Chloride (Normal Saline) 100 mls @ 50 mls/hr IV ASDIRECTED [facility] Last Admin: 06/18/21 18:28 Dose: 50 mls/hr Documented by: Sodium Chloride (Normal Saline) 1,000 mls @ 75 mls/hr IV ASDIRECTED [facility] Last Admin: 06/20/21 23:27 Dose: 200 mls/hr Documented by: Lorazepam (Lorazepam 2 Mg/Ml Sdv) 1 mg IVPUSH Q2H PRN PRN Reason: agitation, anxiety or dyspnea Discontinued Medications Acetaminophen (Acetaminophen 650 Mg Tab.Er) 650 mg PO BID PRN PRN Reason: Pain Last Admin: 06/19/21 20:12 Dose: 650 mg Documented by: Albuterol (Albuterol 0.083% 2.5 Mg/3 Ml Neb Soln) 2.5 mg INH Q4H PRN PRN Reason: Dyspnea Last Admin: 06/20/21 06:02 Dose: 2.5 mg Documented by: Albuterol/Ipratropium (Albuterol/Ipratropium 3.0-0.5 Mg/3 Ml Neb Soln) 3 ml NEB ONETIME ONE Stop: 06/18/21 10:15 Last Admin: 06/18/21 10:48 Dose: 3 ml Documented by: Albuterol/Ipratropium (Albuterol/Ipratropium 3.0-0.5 Mg/3 Ml Neb Soln) 3 ml INH Q6H PRN PRN Reason: Shortness of Breath Last Admin: 06/20/21 01:46 Dose: 3 ml Documented by: Apixaban (Apixaban 5 Mg Tab) 5 mg PO BID [facility] Last Admin: 06/20/21 08:13 Dose: 5 mg Documented by: Aspirin (Aspirin 81 Mg Tab.Chew) 81 mg PO BEDTIME [facility] Last Admin: 06/19/21 20:09 Dose: 81 mg Documented by: Atorvastatin Calcium (Atorvastatin 10 Mg Tab) 20 mg PO QAM [facility] Last Admin: 06/20/21 08:14 Dose: 20 mg Documented by: Budesonide (Budesonide 0.5 Mg/2 Ml Neb Susp) 0.5 mg INH BID PRN PRN Reason: Shortness of Breath Last Admin: 06/19/21 03:30 Dose: 0.5 mg Documented by: Ceftriaxone Sodium (Ceftriaxone 2 Gm Vial) 2 gm IVPUSH ONETIME ONE Stop: 06/18/21 12:12 Last Admin: 06/18/21 12:43 Dose: 2 gm Documented by: Ceftriaxone Sodium (Ceftriaxone 1 Gm Vial) 1 gm IVPUSH Q24H [facility] Last Admin: 06/20/21 12:44 Dose: 1 gm Documented by: Cholecalciferol (Cholecalciferol (Vitamin D3) 25 Mcg Tab) 50 mcg PO DAILY [facility] Last Admin: 06/20/21 08:13 Dose: 50 mcg Documented by: Docusate Sodium (Docusate Sodium 100 Mg Cap) 200 mg PO BEDTIME [facility] Last Admin: 06/19/21 20:12 Dose: 200 mg Documented by: Formoterol Fumarate (Formoterol 20 Mcg/2 Ml Neb) 20 mcg INH BID [facility] Last Admin: 06/20/21 09:50 Dose: Not Given Documented by: Guaifenesin (Guaifenesin 600 Mg Tab.Er) 600 mg PO BID [facility] Last Admin: 06/20/21 08:14 Dose: 600 mg Documented by: Hydrocortisone Sodium Succinate (Hydrocortisone Sodium Succinate 100 Mg/2 Ml Sdv) 100 mg IVPUSH ONETIME ONE Stop: 06/19/21 02:20 Last Admin: 06/19/21 02:34 Dose: 100 mg Documented by: Hydrocortisone Sodium Succinate (Hydrocortisone Sodium Succinate 100 Mg/2 Ml Sdv) 100 mg IVPUSH Q8H [facility] Stop: 06/19/21 21:00 Last Admin: 06/19/21 18:38 Dose: 100 mg Documented by: Hydrocortisone Sodium Succinate (Hydrocortisone Sodium Succinate 250 Mg/2 Ml Sdv) 100 mg IVPUSH Q8H [facility] Last Admin: 06/20/21 10:53 Dose: 100 mg Documented by: Hydrocortisone Sodium Succinate (Hydrocortisone Sodium Succinate 100 Mg/2 Ml Sdv) 100 mg IVPUSH Q8H [facility] Last Admin: 06/20/21 18:19 Dose: 100 mg Documented by: Levofloxacin/Dextrose 500 mg/ (Premix) 100 mls @ 100 mls/hr IV Q24H [facility] Last Admin: 06/20/21 17:37 Dose: 100 mls/hr Documented by: Magnesium Sulfate 2 gm/ Premix 50 mls @ 50 mls/hr IV ONETIME ONE Stop: 06/19/21 03:19 Last Admin: 06/19/21 02:38 Dose: 50 mls/hr Documented by: Sodium Chloride (Normal Saline) 1,000 mls @ 200 mls/hr IV ASDIRECTED ONE Stop: 06/20/21 14:34 Last Infusion: 06/20/21 13:17 Dose: 75 mls/hr Documented by: Lisinopril (Lisinopril 5 Mg Tab) 2.5 mg PO QPM [facility] Last Admin: 06/19/21 20:10 Dose: 2.5 mg Documented by: Lorazepam (Lorazepam 2 Mg/Ml Sdv) 2 mg IVPUSH ONETIME ONE Stop: 06/20/21 19:08 Last Admin: 06/20/21 19:19 Dose: Not Given Documented by: Lorazepam (Lorazepam 2 Mg/Ml Sdv) Confirm Administered Dose 2 mg .ROUTE .STK-MED ONE Stop: 06/20/21 19:11 Last Admin: 06/20/21 19:18 Dose: Not Given Documented by: Lorazepam (Lorazepam 2 Mg/Ml Sdv) 1 mg IVPUSH ONETIME ONE Stop: 06/20/21 19:08 Last Admin: 06/20/21 19:07 Dose: 1 mg Documented by: Lorazepam (Lorazepam 2 Mg/Ml Sdv) 1 mg IVPUSH Q4H PRN PRN Reason: agitation, anxiety or dyspnea Magnesium Chloride (Magnesium Chloride 64 Mg Tab.Er) 64 mg PO BEDTIME [facility] Last Admin: 06/19/21 20:09 Dose: 64 mg Documented by: Montelukast Sodium (Montelukast 10 Mg Tab) 10 mg PO BEDTIME [facility] Last Admin: 06/19/21 20:18 Dose: 10 mg Documented by: Omeprazole (Omeprazole 20 Mg Cap.Cr) 20 mg PO DAILY [facility] Last Admin: 06/20/21 08:14 Dose: 20 mg Documented by: Prednisone (Prednisone 5 Mg Tab) 5 mg PO DAILY [facility] Last Admin: 06/20/21 08:14 Dose: 5 mg Documented by: - Exam Quality Assessment: Supplemental Oxygen Physical Findings Comments:: GENERAL: Frail-appearing adult in mild to moderate distress. HEENT: Normocephalic, atraumatic. Conjunctiva clear. Nares patent without discharge. Mucous membranes moist, posterior pharynx unremarkable. Oxygen mask in place. NECK: Supple, no masses. CV: Regular rate and rhythm, no murmurs, rubs, or gallops. 2+ radial pulses. PULMONARY: Increased work of breathing, tachypnea, rhonchi and rales noted throughout ABDOMEN: Positive bowel sounds, soft, nontender, nondistended. EXTREMITIES: No edema, cyanosis, or clubbing. MUSCULOSKELETAL: Moves all extremities well. NEUROLOGICAL: No obvious deficits. DERMATOLOGIC: Multiple areas of bruising on arms. No rashes or suspicious lesions in exposed areas. PSYCHIATRIC: Responsive only to pain - Patient Data Lab Results Last 24 hrs: Laboratory Results - last 24 hr 06/20/21 06/20/21 06/20/21 Range/Units 07:25 13:00 19:10 Lactic Acid 3.6 H 2.6 H (0.4-2.0) mmol/L B-Natriuretic Peptide (0-100) pg/mL Procalcitonin 0.14 H ng/mL 06/20/21 Range/Units 19:10 Lactic Acid (0.4-2.0) mmol/L B-Natriuretic Peptide 514 H (0-100) pg/mL Procalcitonin ng/mL Result Diagrams: 06/20/21 07:25 06/20/21 07:25 Cong Results Last 24 hrs: Microbiology 06/20/21 11:05 Streptococcus pneumoniae Antigen (M - Final Urine 06/18/21 12:50 Aerobic Blood Culture - Preliminary Blood - Venous - Lab Draw NO GROWTH AFTER 2 DAYS Anaerobic Blood Culture - Preliminary NO GROWTH AFTER 2 DAYS 06/18/21 12:35 Aerobic Blood Culture - Preliminary Blood - Venous NO GROWTH AFTER 2 DAYS Anaerobic Blood Culture - Preliminary NO GROWTH AFTER 2 DAYS Sepsis Event Note - Evaluation Sepsis Screening Result: Severe Sepsis Risk - Focused Exam Vital Signs: Vital Signs Temp Pulse Resp BP Pulse Ox 06/21/21 06:00 35.6 C L 98 14 96/58 L 92 L 06/21/21 05:45 99 10 L 96/55 L 90 L 06/21/21 05:28 75 10 L 80/54 L 85 L 06/21/21 05:00 98 10 L 90 L 06/21/21 04:00 95 12 88 L 06/21/21 03:00 98 12 90 L 06/21/21 02:00 101 H 12 88 L 06/21/21 01:00 104 H 12 88 L 06/21/21 00:00 106 H 14 88 L 06/20/21 23:00 35.9 C L 103 H 24 H 145/76 H 93 L - Problem List Review Problem List Initiated/Reviewed/Updated: Yes - My Orders Last 24 Hours: My Active Orders 06/20/21 20:14 Comfort Measures [OM.PC] Routine 06/20/21 20:15 Acetaminophen [Tylenol] 650 mg RECTAL Q6H PRN 06/20/21 20:19 Vital Signs [RC] .PRN 06/20/21 20:20 Glycopyrrolate [Robinul] 0.2 mg IVPUSH Q6H PRN 06/20/21 20:43 HYDROmorphone [Dilaudid] 0.5 mg IVPUSH Q1H PRN 06/20/21 20:49 LORazepam [Ativan] 1 mg IVPUSH Q2H PRN 06/20/21 20:55 Code Status [Resuscitation Status] Routine 06/21/21 Breakfast NPO Now [Nothing per Oral Now Diet] [DIET] - Assessment Assessment:: HPI summary: Patient had presented to the [facility] for his scheduled oncology followup and was noted to be cyanotic with O2 sat in the 50s. Patient is oxygen dependent and typically uses 3-3.5L by NC at home, he was on a lower flow rate on the portable in the car and walked into the clinic without oxygen applied. Patient reported worsened SOB over the last few days with a "loose rattling" sound. He has a chronic cough which has been unchanged. He has duonebs at home BID, had not used any nebs prior to his appointment. He is on chronic prednisone at home. Past medical history is significant for small cell lung cancer, COPD, tobacco dependence. ED course: WBC 13.29 (86.5% neutrophils), Hgb 12.0, Plt 186. Lactic acid 1.9. BUN 43, creatinine 0.96, BNP 291, AST 72. CXR consistent with pneumonia and L hilar mass noted. Radiology recommended CT chest for further evaluation of adenopathy. Rocephin 2g IV given in ER. BC x 2 pending. Patient admitted to inpatient status per Dr Lobo. Hospital course: 06/19/21: Overnight patient had an episode of respiratory distress with solucortef 100mg IV, Mag sulfate 2gm, mucinex, duonebs given per Dr Lobo. ABG's obtained: pH 7.37, CO2 53, PO2 73, HCO3 30.6, O2 sat 94%. Patient responded to medications given. CT chest ordered for this morning for further evaluation of pneumonia vs pneumonitis and further evaluation of lymphadenopathy however this was held due to elevated BUN. IV fluids initiated at 75ml/hr for hydration. Patient denies feeling overly short of breath this morning low 90s on 4L O2. Discussed code status with patient, and daughter and code status changed to DNR/DNI with POLST updated. Hospice referral placed due to diagnosis of terminal lung cancer per family request. Patient's acknowledged that she understands that there is no cure for patient's type of lung cancer and that his main concerns is what would happen for her if he would pass away. Discussed possible use of BIPAP should patient's respiratory status decline. Patient states that he does not wish to be transferred to [place] for a decline in his condition. Lactic acid 3.4, Mg 2.0, CRP 5.0. WBC 13.58 (88.4% neutrophils), BUN 35. Vitals stable. Will continue current plan of care including IV antibiotics, IV steroids and plan to obtain CT scan if BUN improves. 06/20/21: Patient reports feeling better this morning, "I can catch some air." Patient requesting to go home. Lung sounds unchanged - continues with audible coarse lung sounds, crackles, rales, rhonchi on auscultation. O2 4-5L NC to maintain sat > 88%. WBC 13.29 (neutrophils 94%), Hgb 11.7, BUN 30, LA 4.0. Increased IVF to 200ml/hr for 3 hours for 30ml/kg bolus due to elevated lactic acid (570ml). BMI 19.2. Repeat Lactic acid at 1300. Per RT D/C performist and scheduled duonebs Q6H, increased frequency of albuterol nebs to Q2H PRN. CT chest remains on hold given BUN. CBC, BMP, CRP ordered for Thursday am. Hospice consultation scheduled for 1330 this afternoon. Further plan of care dependent on outcomes of hospice meeting and patient/family desires to continue current plan of care. 06/20/2021: Called in by nursing do to decreased responsiveness and increased work of breathing. Patient found to have increased oxygen need for 10L/mask to maintain sat at 90 and sometimes dips into the 80s. Family arrived and after discussing status would like him made comfort cares only. Hospitalization problems and plan: # Comfort cares - Discontinue all oral medications - Lorazepam 1mg every two hours IV PRN agitation - hydromorphone 0.5mg IV hourly PRN increased work of breathing - glycopyrrolate 0.2mg IVP every 6 hours PRN secretions - May continue nebs and oxygen - NS at 75mL/hr - Stop antibiotics - No further lab draws - Vitals per routine # Acute on chronic hypoxic respiratory failure # Pneumonia # Small cell lung cancer # COPD # Elevated lactic acid # Elevated BUN # Malnutrition - BMI 19.2 Chronic, stable conditions: # Congestive heart failure # CAD - Discontinue lisinopril 2.5mg PO daily, Discontinue aspirin 81mg EC daily # Hx of NSTEMI # Cephalix vein thrombosis, left - Discontinue apixaban 5mg PO BID # Hyperlipidemia - discontinue atorvastatin 20mg PO daily # GERD - discontinue omeprazole 20mg PO daily # Osteoporosis - discontinue vitamin D3 2000units PO daily # Anemia due to antineoplastic chemotherapy # Chronic fatigue # Allergic rhinitis - discontinue montelukast 10mg PO daily # Tobacco dependence # Hypomagnesemia - discontinue magnesium chloride 64mg PO daily # Constipation - discontinue docusate sodium daily Hospitalization details: # FEN: NS rate of 75ml/hr, electrolytes stable, no oral intake due to cognition # PPX: N/A # Code status: DNR/DNI, comfort measures only # Emergency contact: & daughter in room with patient and updated on condition # Disposition: Patient to continue inpatient status until morning to evaluate for possible swing bed placement
--- NOTE | 2021-06-21 10:07 | PCM.DCSUM1 ---
Discharge Summary - Hospital Course Free Text/Narrative:: Date of admission: 06/18/2021 Date of discharge: 06/20/21 Admission diagnoses: # Comfort cares # Acute on chronic hypoxic respiratory failure # Pneumonia # Small cell lung cancer # COPD # Elevated lactic acid # Elevated BUN # Malnutrition Discharge diagnoses: # Comfort cares # Acute on chronic hypoxic respiratory failure # Pneumonia # Small cell lung cancer # COPD # Elevated lactic acid # Elevated BUN # Malnutrition # Congestive heart failure # CAD # Hx of NSTEMI # Cephalix vein thrombosis, left # Hyperlipidemia # GERD # Osteoporosis # Anemia due to antineoplastic chemotherapy # Chronic fatigue # Allergic rhinitis # Tobacco dependence # Hypomagnesemia # Constipation Consultations: None Procedures: None Hospital course: HPI summary: Patient had presented to the [facility] for his scheduled oncology followup and was noted to be cyanotic with O2 sat in the 50s. Patient is oxygen dependent and typically uses 3-3.5L by NC at home, he was on a lower flow rate on the portable in the car and walked into the clinic without oxygen applied. Patient reported worsened SOB over the last few days with a "loose rattling" sound. He has a chronic cough which has been unchanged. He has duonebs at home BID, had not used any nebs prior to his appointment. He is on chronic prednisone at home. Past medical history is significant for small cell lung cancer, COPD, tobacco dependence. ED course: WBC 13.29 (86.5% neutrophils), Hgb 12.0, Plt 186. Lactic acid 1.9. BUN 43, creatinine 0.96, BNP 291, AST 72. CXR consistent with pneumonia and L hilar mass noted. Radiology recommended CT chest for further evaluation of adenopathy. Rocephin 2g IV given in ER. BC x 2 pending. Patient admitted to inpatient status per Dr Lobo. Hospital course: 06/19/21: Overnight patient had an episode of respiratory distress with so lucortef 100mg IV, Mag sulfate 2gm, mucinex, duonebs given per Dr Lobo. ABG's obtained: pH 7.37, CO2 53, PO2 73, HCO3 30.6, O2 sat 94%. Patient responded to medications given. CT chest ordered for this morning for further evaluation of pneumonia vs pneumonitis and further evaluation of lymphadenopathy however this was held due to elevated BUN. IV fluids initiated at 75ml/hr for hydration. Patient denies feeling overly short of breath this morning low 90s on 4L O2. Discussed code status with patient, and daughter and code status changed to DNR/DNI with POLST updated. Hospice referral placed due to diagnosis of terminal lung cancer per family request. Patient's acknowledged that she understands that there is no cure for patient's type of lung cancer and that his main concerns is what would happen for her if he would pass away. Discussed possible use of BIPAP should patient's respiratory status decline. Patient states that he does not wish to be transferred to [place] for a decline in his condition. Lactic acid 3.4, Mg 2.0, CRP 5.0. WBC 13.58 (88.4% neutrophils), BUN 35. Vitals stable. Will continue current plan of care including IV antibiotics, IV steroids and plan to obtain CT scan if BUN improves. 06/20/21: Patient reports feeling better this morning, "I can catch some air." Patient requesting to go home. Lung sounds unchanged - continues with audible coarse lung sounds, crackles, rales, rhonchi on auscultation. O2 4-5L NC to maintain sat > 88%. WBC 13.29 (neutrophils 94%), Hgb 11.7, BUN 30, LA 4.0. Increased IVF to 200ml/hr for 3 hours for 30ml/kg bolus due to elevated lactic acid (570ml). BMI 19.2. Repeat Lactic acid at 1300. Per RT D/C performist and scheduled duonebs Q6H, increased frequency of albuterol nebs to Q2H PRN. CT chest remains on hold given BUN. CBC, BMP, CRP ordered for Thursday am. Hospice consultation scheduled for 1330 this afternoon. Further plan of care dependent on outcomes of hospice meeting and patient/family desires to continue current plan of care. 06/20/2021: Called in by nursing do to decreased responsiveness and increased work of breathing. Patient found to have increased oxygen need for 10L/mask to maintain sat at 90 and sometimes dips into the 80s. Family arrived and after discussing status would like him made comfort cares only. 06/21/2021: Patient passed peacefully on rounds with family in room on rounds. TOD: [id number] Discharge and follow-up recommendations: - Discharge to [facility] - Discharge Data Discharge Date: 06/21/21 Discharge Disposition: 20 Preliminary Cause of *Q: Respiratory Failure Event(s) Leading to Patient's *Q: Respiratory failure due to pneumonia with underlying small cell lung cancer and COPD Condition: - Referral to Home Health Primary Care Physician: Mana Cruz MD - Patient Summary/Data Consults: Consultations 06/19/21 11:21 Consult to Hospice [CONS] Routine - Discharge Plan *PRESCRIPTION DRUG MONITORING PROGRAM REVIEWED*: Not Applicable *COPY OF PRESCRIPTION DRUG MONITORING REPORT IN PATIENT MAURO: Not Applicable Home Medications: Home Meds Acetaminophen [Acetaminophen 8 Hour] 650 mg PO BID PRN 10/25/20 [History] Albuterol [Proventil Neb Soln] 2.5 mg INH Q4H PRN 10/25/20 [History] Albuterol/Ipratropium [DuoNeb 3.0-0.5 MG/3 ML] 1 ampule INH Q6H PRN 10/25/20 [History] Aspirin 81 mg PO BEDTIME 10/25/20 [History] Budesonide [Pulmicort] 0.5 mg IH BID 10/25/20 [History] Cholecalciferol (Vitamin D3) [Vitamin D3] 2,000 units PO DAILY 10/25/20 [History] Docusate Sodium [Colace] 200 mg PO BEDTIME 10/25/20 [History] Formoterol [Perforomist] 20 mcg INH BID 10/25/20 [History] Magnesium Chloride [Magnesium] 64 mg PO BEDTIME 10/25/20 [History] Montelukast [Singulair] 10 mg PO BEDTIME 10/25/20 [History] atorvaSTATin [Lipitor] 20 mg PO QAM 10/25/20 [History] lisinopriL [Prinivil] 2.5 mg PO QPM 10/25/20 [History] predniSONE [Prednisone] 5 mg PO DAILY 10/25/20 [History] Apixaban [Eliquis] 5 mg PO BID 01/16/21 [History] Atezolizumab [Tecentriq] 1,200 mg IV ASDIRECTED 02/06/21 [History] Omeprazole 20 mg PO DAILY 06/18/21 [History] - Discharge Summary/Plan Comment DC Time >30 min.: Yes Total # of Minutes for Discharge Time: 45 - General Info Date of Service: 06/21/21 Subjective Update: Patient resting comfortably, without distress with family at side. Respirations and cardiac activity ceased while in room for rounds. - Review of Systems Systems Review Comment: Unable to obtain. Unresponsive. Family reports no overnight concerns or concerns for pain or respiratory complaint. - Patient Data Vitals - Most Recent: Last Vital Signs Temp 35.6 C L 06/21/21 06:00 Pulse 98 06/21/21 06:00 Resp 14 06/21/21 06:00 BP 96/58 L 06/21/21 06:00 Pulse Ox 92 L 06/21/21 06:00 Weight - Most Recent: 64.365 kg I&O - Last 24 hours: Intake & Output 06/20/21 06/21/21 06/21/21 22:59 06:59 14:59 Intake Total 250 1247 Output Total 350 Balance -100 1247 Lab Results - Last 24 hrs: Laboratory Results - last 24 hr 06/20/21 06/20/21 06/20/21 Range/Units 07:25 13:00 19:10 Lactic Acid 3.6 H 2.6 H (0.4-2.0) mmol/L B-Natriuretic Peptide (0-100) pg/mL Procalcitonin 0.14 H ng/mL 06/20/21 Range/Units 19:10 Lactic Acid (0.4-2.0) mmol/L B-Natriuretic Peptide 514 H (0-100) pg/mL Procalcitonin ng/mL [facility]Z Results - Last 24 hrs: Microbiology 06/20/21 11:05 Streptococcus pneumoniae Antigen (M - Final Urine 06/18/21 12:50 Aerobic Blood Culture - Preliminary Blood - Venous - Lab Draw NO GROWTH AFTER 2 DAYS Anaerobic Blood Culture - Preliminary NO GROWTH AFTER 2 DAYS 06/18/21 12:35 Aerobic Blood Culture - Preliminary Blood - Venous NO GROWTH AFTER 2 DAYS Anaerobic Blood Culture - Preliminary NO GROWTH AFTER 2 DAYS Med Orders - Current: Current Medications Acetaminophen (Acetaminophen 650 Mg Supp) 650 mg RECTAL Q6H PRN PRN Reason: discomfort Albuterol (Albuterol 0.083% 2.5 Mg/3 Ml Neb Soln) 2.5 mg INH Q2H PRN PRN Reason: Dyspnea Albuterol/Ipratropium (Albuterol/Ipratropium 3.0-0.5 Mg/3 Ml Neb Soln) 3 ml INH Q6H [facility] Last Admin: 06/21/21 05:41 Dose: Not Given Documented by: Budesonide (Budesonide 0.5 Mg/2 Ml Neb Susp) 0.5 mg INH BIDRT [facility] Last Admin: 06/20/21 20:22 Dose: 0.5 mg Documented by: Glycopyrrolate (Glycopyrrolate 0.2 Mg/Ml Sdv) 0.2 mg IVPUSH Q6H PRN PRN Reason: respiratory secretions Hydromorphone HCl (Hydromorphone 1 Mg/Ml Syringe) 0.5 mg IVPUSH Q1H PRN PRN Reason: dyspnea or agitation Last Admin: 06/21/21 08:09 Dose: 0.5 mg Documented by: Sodium Chloride (Normal Saline) 100 mls @ 50 mls/hr IV ASDIRECTED [facility] Last Admin: 06/18/21 18:28 Dose: 50 mls/hr Documented by: Sodium Chloride (Normal Saline) 1,000 mls @ 75 mls/hr IV ASDIRECTED [facility] Last Admin: 06/20/21 23:27 Dose: 200 mls/hr Documented by: Lorazepam (Lorazepam 2 Mg/Ml Sdv) 1 mg IVPUSH Q2H PRN PRN Reason: agitation, anxiety or dyspnea Discontinued Medications Acetaminophen (Acetaminophen 650 Mg Tab.Er) 650 mg PO BID PRN PRN Reason: Pain Last Admin: 06/19/21 20:12 Dose: 650 mg Documented by: Albuterol (Albuterol 0.083% 2.5 Mg/3 Ml Neb Soln) 2.5 mg INH Q4H PRN PRN Reason: Dyspnea Last Admin: 06/20/21 06:02 Dose: 2.5 mg Documented by: Albuterol/Ipratropium (Albuterol/Ipratropium 3.0-0.5 Mg/3 Ml Neb Soln) 3 ml NEB ONETIME ONE Stop: 06/18/21 10:15 Last Admin: 06/18/21 10:48 Dose: 3 ml Documented by: Albuterol/Ipratropium (Albuterol/Ipratropium 3.0-0.5 Mg/3 Ml Neb Soln) 3 ml INH Q6H PRN PRN Reason: Shortness of Breath Last Admin: 06/20/21 01:46 Dose: 3 ml Documented by: Apixaban (Apixaban 5 Mg Tab) 5 mg PO BID [facility] Last Admin: 06/20/21 08:13 Dose: 5 mg Documented by: Aspirin (Aspirin 81 Mg Tab.Chew) 81 mg PO BEDTIME [facility] Last Admin: 06/19/21 20:09 Dose: 81 mg Documented by: Atorvastatin Calcium (Atorvastatin 10 Mg Tab) 20 mg PO QAM [facility] Last Admin: 06/20/21 08:14 Dose: 20 mg Documented by: Budesonide (Budesonide 0.5 Mg/2 Ml Neb Susp) 0.5 mg INH BID PRN PRN Reason: Shortness of Breath Last Admin: 06/19/21 03:30 Dose: 0.5 mg Documented by: Ceftriaxone Sodium (Ceftriaxone 2 Gm Vial) 2 gm IVPUSH ONETIME ONE Stop: 06/18/21 12:12 Last Admin: 06/18/21 12:43 Dose: 2 gm Documented by: Ceftriaxone Sodium (Ceftriaxone 1 Gm Vial) 1 gm IVPUSH Q24H [facility] Last Admin: 06/20/21 12:44 Dose: 1 gm Documented by: Cholecalciferol (Cholecalciferol (Vitamin D3) 25 Mcg Tab) 50 mcg PO DAILY [facility] Last Admin: 06/20/21 08:13 Dose: 50 mcg Documented by: Docusate Sodium (Docusate Sodium 100 Mg Cap) 200 mg PO BEDTIME [facility] Last Admin: 06/19/21 20:12 Dose: 200 mg Documented by: Formoterol Fumarate (Formoterol 20 Mcg/2 Ml Neb) 20 mcg INH BID [facility] Last Admin: 06/20/21 09:50 Dose: Not Given Documented by: Guaifenesin (Guaifenesin 600 Mg Tab.Er) 600 mg PO BID [facility] Last Admin: 06/20/21 08:14 Dose: 600 mg Documented by: Hydrocortisone Sodium Succinate (Hydrocortisone Sodium Succinate 100 Mg/2 Ml Sdv) 100 mg IVPUSH ONETIME ONE Stop: 06/19/21 02:20 Last Admin: 06/19/21 02:34 Dose: 100 mg Documented by: Hydrocortisone Sodium Succinate (Hydrocortisone Sodium Succinate 100 Mg/2 Ml Sdv) 100 mg IVPUSH Q8H [facility] Stop: 06/19/21 21:00 Last Admin: 06/19/21 18:38 Dose: 100 mg Documented by: Hydrocortisone Sodium Succinate (Hydrocortisone Sodium Succinate 250 Mg/2 Ml Sdv) 100 mg IVPUSH Q8H [facility] Last Admin: 06/20/21 10:53 Dose: 100 mg Documented by: Hydrocortisone Sodium Succinate (Hydrocortisone Sodium Succinate 100 Mg/2 Ml Sdv) 100 mg IVPUSH Q8H [facility] Last Admin: 06/20/21 18:19 Dose: 100 mg Documented by: Levofloxacin/Dextrose 500 mg/ (Premix) 100 mls @ 100 mls/hr IV Q24H [facility] Last Admin: 06/20/21 17:37 Dose: 100 mls/hr Documented by: Magnesium Sulfate 2 gm/ Premix 50 mls @ 50 mls/hr IV ONETIME ONE Stop: 06/19/21 03:19 Last Admin: 06/19/21 02:38 Dose: 50 mls/hr Documented by: Sodium Chloride (Normal Saline) 1,000 mls @ 200 mls/hr IV ASDIRECTED ONE Stop: 06/20/21 14:34 Last Infusion: 06/20/21 13:17 Dose: 75 mls/hr Documented by: Lisinopril (Lisinopril 5 Mg Tab) 2.5 mg PO QPM [facility] Last Admin: 06/19/21 20:10 Dose: 2.5 mg Documented by: Lorazepam (Lorazepam 2 Mg/Ml Sdv) 2 mg IVPUSH ONETIME ONE Stop: 06/20/21 19:08 Last Admin: 06/20/21 19:19 Dose: Not Given Documented by: Lorazepam (Lorazepam 2 Mg/Ml Sdv) Confirm Administered Dose 2 mg .ROUTE .STK-MED ONE Stop: 06/20/21 19:11 Last Admin: 06/20/21 19:18 Dose: Not Given Documented by: Lorazepam (Lorazepam 2 Mg/Ml Sdv) 1 mg IVPUSH ONETIME ONE Stop: 06/20/21 19:08 Last Admin: 06/20/21 19:07 Dose: 1 mg Documented by: Lorazepam (Lorazepam 2 Mg/Ml Sdv) 1 mg IVPUSH Q4H PRN PRN Reason: agitation, anxiety or dyspnea Magnesium Chloride (Magnesium Chloride 64 Mg Tab.Er) 64 mg PO BEDTIME [facility] Last Admin: 06/19/21 20:09 Dose: 64 mg Documented by: Montelukast Sodium (Montelukast 10 Mg Tab) 10 mg PO BEDTIME [facility] Last Admin: 06/19/21 20:18 Dose: 10 mg Documented by: Omeprazole (Omeprazole 20 Mg Cap.Cr) 20 mg PO DAILY [facility] Last Admin: 06/20/21 08:14 Dose: 20 mg Documented by: Prednisone (Prednisone 5 Mg Tab) 5 mg PO DAILY [facility] Last Admin: 06/20/21 08:14 Dose: 5 mg Documented by: - Exam Physical Findings Comments:: GENERAL: Frail-appearing adult in no distress HEENT: Normocephalic, atraumatic. Conjunctiva clear. Nares patent without discharge. Mucous membranes dry, posterior pharynx unremarkable. Oxygen mask in place. NECK: Supple, no masses. CV: Bradycardia with distant heart tones that eventually ceased PULMONARY: No distress, agonal breathing at times which did eventually cease ABDOMEN: hypoactive bowel sounds, soft, nontender, nondistended. EXTREMITIES: No edema, cyanosis, or clubbing. Mottling present MUSCULOSKELETAL: Appears to be resting comfortably NEUROLOGICAL: Unresponsive DERMATOLOGIC: Multiple areas of bruising on arms. No rashes or suspicious lesions in exposed areas. PSYCHIATRIC: Unresponsive
== END 2021-06-21 09:37 | disposition expired | DRG 193 ==
LOC: KA.ED 09:54 → KA.MS 14:13
PROVIDERS: ADMIT Family Medicine; ATTEND Family Medicine
DX: J18.9 Pneumonia, unspecified organism (principal); J96.21 Acute and chronic respiratory failure with hypoxia; A41.9 Sepsis, unspecified organism; R65.21 Severe sepsis with septic shock; E46 Unspecified protein-calorie malnutrition; Z68.1 Body mass index [BMI] 19.9 or less, adult; I82.612 Acute embolism and thrombosis of superficial veins of left upper extremity; I50.22 Chronic systolic (congestive) heart failure; C34.12 Malignant neoplasm of upper lobe, left bronchus or lung; Z51.5 Encounter for palliative care; Z66 Do not resuscitate; R09.02 Hypoxemia; Z20.822 Contact with and (suspected) exposure to COVID-19; C34.90 Malignant neoplasm of unspecified part of unspecified bronchus or lung; J43.9 Emphysema, unspecified; E78.5 Hyperlipidemia, unspecified; K21.9 Gastro-esophageal reflux disease without esophagitis; D64.81 Anemia due to antineoplastic chemotherapy; H54.7 Unspecified visual loss; I25.10 Atherosclerotic heart disease of native coronary artery without angina pectoris; J30.9 Allergic rhinitis, unspecified; I50.9 Heart failure, unspecified; E83.42 Hypomagnesemia; K59.00 Constipation, unspecified; M81.0 Age-related osteoporosis without current pathological fracture; G89.29 Other chronic pain; M25.551 Pain in right hip; R79.89 Other specified abnormal findings of blood chemistry; F17.200 Nicotine dependence, unspecified, uncomplicated; I25.2 Old myocardial infarction; Z85.22 Personal history of malignant neoplasm of nasal cavities, middle ear, and accessory sinuses; D64.9 Anemia, unspecified; Z85.828 Personal history of other malignant neoplasm of skin; Z85.21 Personal history of malignant neoplasm of larynx; Z87.442 Personal history of urinary calculi; Z85.528 Personal history of other malignant neoplasm of kidney; Z88.6 Allergy status to analgesic agent; Z98.890 Other specified postprocedural states; Z88.5 Allergy status to narcotic agent; Z79.01 Long term (current) use of anticoagulants; Z79.82 Long term (current) use of aspirin; Z99.81 Dependence on supplemental oxygen; Z79.51 Long term (current) use of inhaled steroids; Z79.52 Long term (current) use of systemic steroids; Z79.899 Other long term (current) drug therapy; Z86.79 Personal history of other diseases of the circulatory system
CPT/HCPCS: 36415; 36600; 71045; 80048; 80053; 82803; 83605; 83735; 83880; 84145; 85025; 86140; 87040; 87899; 94640; 96374; 99284; 99285-25; A9270-GY; J0696; J1170; J1720; J1956; J2060; J3475; J7030; J7512; J7606; J7613-GY; J7620-GY; U0002